=== PATIENT | female | born 1935 | race Caucasian/White ===

== ENCOUNTER 2018-11-26 09:12 | Observation (INO) | payer OTHER ==
--- NOTE | 2018-11-26 10:07 | RAD REPORT ---
EXAM DESCRIPTION: RAD - Chest Single View - 11/26/2018 9:54 am CLINICAL HISTORY: CHEST PAIN Chest pain. COMPARISON: No comparisons FINDINGS: Portable technique limits examination quality. Mild bilateral pulmonary opacities are noted suspicious for mild pulmonary edema. The heart is modera tely enlarged in size. Trace pleural fluid is seen.Aortic atherosclerosis. IMPRESSION: Mild CHF versus volume overload pattern suspected.
[2018-11-26 10:15] LABS: ALT/SGPT 16 U/L (12-78); AST/SGOT 19 U/L (15-37); Albumin 3.5 g/dL (3.4-5.0); Alkaline Phosphatase 67 U/L (45-117); BUN Blood Urea Nitrogen 19 mg/dL (7-18); Bicarbonate 26 mmol/L (21-32); Bilirubin Direct 0.1 mg/dL (0-0.2); Bilirubin Total 0.3 mg/dL (0.2-1.0); Glucose Level 89 mg/dL (74-106); Magnesium 2.4 mg/dL (1.8-2.4); NT PRO-BNP 2910 pg/mL (<450); Potassium 4.5 mmol/L (3.5-5.1); Protein, Total 7.8 g/dL (6.4-8.2); Sodium Level 143 mmol/L (136-145); Troponin (Emerg Dept Use Only) < 0.02 ng/mL (0.0-0.045)
[2018-11-26 10:16] LABS: Absolute Lymphocytes (CBC) 0.9 K/uL (0.7-4.9); Absolute Monocytes 0.5 K/uL (0.1-1.3); Absolute Neutrophil 4.8 K/uL (1.8-8.0); Basophils % 0.8 % (0-1.3); Eosinophils % 8.2 % (0-4.4); Hematocrit 33.5 % (36.0-45.0); Lymphocytes % 13.7 % (15.3-44.8); MPV 9.7 fL (7.6-11.3); Monocytes % 7.5 % (3.3-12.3); Protime INR 1.11
[2018-11-26] MEDS ORDERED: FUROSEMIDE 40 MG/4 ML VIAL ONE (10:30)
--- NOTE | 2018-11-26 10:31 | ER ---
Nurse's Notes [facility] Name: Surekha Wisdom Age: 83 yrs Sex: Female : 1935 Arrival Date: 11/26/2018 Time: 09:13 Bed 7 Private MD: Diagnosis: Acute CHF exacerbation;Chest pain;Shortness of breath Presentation: 11/26 09:14 Presenting complaint: EMS states: coming from [facility], complaints of chest pain hj that comes and goes, started 4 am, and its getting worse, 8/10; hx of Afib, aspirin 324 mg given at 8:25 am; nitro 0.4 mg x 4 last dose at 9:03 am; pain down to 5/10; BP- 138/85; HR- 70;. Transition of care: patient was received from another setting of care (long-term care facility), [facility];. Onset of symptoms was November 26, 2018 at 04:00. Risk Assessment: Do you want to hurt yourself or someone else? Patient reports no desire to harm self or others. Initial Sepsis Screen: Does the patient meet any 2 criteria? No. Patient's initial sepsis screen is negative. Does the patient have a suspected source of infection? No. Patient's initial sepsis screen is negative. Care prior to arrival: None. 09:14 Method Of Arrival: EMS: [facility] 09:14 Acuity: JEANMARIE 3 hj Triage Assessment: 09:18 General: Appears in no apparent distress. uncomfortable, Behavior is calm, cooperative, hj appropriate for age. Pain: Complains of pain in chest Pain currently is 5 out of 10 on a pain scale. EENT: No signs and/or symptoms were reported regarding the EENT system. Neuro: Level of Consciousness is awake, alert, obeys commands, Oriented to person, place, time, situation, Appropriate for age. Cardiovascular: Capillary refill < 3 seconds Patient's skin is warm and dry. Respiratory: Airway is patent Respiratory effort is even, unlabored, Respiratory pattern is regular, symmetrical. GI: No signs and/or symptoms were reported involving the gastrointestinal system. : No signs and/or symptoms were reported regarding the genitourinary system. Derm: No signs and/or symptoms reported regarding the dermatologic system. Musculoskeletal: No signs and/or symptoms reported regarding the musculoskeletal system. Historical: - Allergies: 09:17 No Known Allergies; hj - Home Meds: 09:17 gabapentin 100 mg oral cap 3 caps 3 times per day [Active]; Cozaar 100 mg Oral tab 1 hj tab once daily [Active]; amlodipine 5 mg tab 1 tab once daily [Active]; [place] 200-200-20 mg/5 mL oral susp 30 mL every 4 hours [Active]; mirtazapine 7.5 mg Oral tab 1 tabs once daily [Active]; Tylenol-Codeine #4 300-60 mg Oral tab 1 tab every 6 hours [Active]; aspirin 81 mg Oral chew 1 tab once daily [Active]; bisacodyl 5 mg Oral TbEC 1 tab [Active]; tramadol 50 mg Oral tab 2 tabs twice a day [Active]; cyanocobalamin (vitamin B-12) 100 mcg oral tab [Active]; docusate calcium 240 mg Oral cap 1 cap once daily [Active]; Restoril 15 mg Oral cap 1 cap once daily [Active]; melatonin 3 mg oral tab daily [Active]; Cymbalta 60 mg oral cpDR 1 cap once daily [Active]; Milk of Magnesia 400 mg/5 mL Oral susp 30 mL once daily [Active]; loratadine 10 mg oral tab 1 tab once daily [Active]; meloxicam 7.5 mg oral tab 1 tab once daily [Active]; fenofibrate 54 mg oral tab 1 tab once daily [Active]; Imdur 30 mg Oral Tb24 1 tab once daily [Active]; Coreg 12.5 mg Oral tab 1 tab 2 times per day [Active]; Miralax 17 gram/dose Oral powd once daily [Active]; Lipitor 20 mg Oral tab 1 tab once daily [Active]; - PMHx: 09:17 Hyperlipidemia; Hypertension; hj - PSHx: :17 Unable to obtain; hj - Immunization history:: Adult Immunizations up to date. - Social history:: Smoking status: Patient/guardian denies using tobacco, Patient/guardian denies using alcohol. - Ebola Screening: : Patient negative for fever greater than or equal to 101.5 degrees Fahrenheit, and additional compatible Ebola Virus Disease symptoms Patient denies exposure to infectious person Patient denies travel to an Ebola-affected area in the 21 days before illness onset. Screenin:19 Abuse screen: Denies threats or abuse. Denies injuries from another. Nutritional hj screening: No deficits noted. Tuberculosis screening: No symptoms or risk factors identified. Fall Risk None identified. Assessment: 09:20 Pain: Complains of pain in chest Pain does not radiate. Pain began. hj Vital Signs: 09:20 BP 150 / 110; Pulse 75; Resp 18; Pulse Ox 100% on 2 lpm NC; Weight 79.38 kg; Height 5 hj ft. 7 in. (170.18 cm); Pain 5/10; 09:51 BP 148 / 95; Pulse 70; Resp 18; Pulse Ox 100% on 2 lpm NC; Pain 2/10; hj 11:01 BP 151 / 78; Pulse 83; Resp 18; Pulse Ox 98% on 2 lpm NC; hj 09:20 Body Mass Index 27.41 (79.38 kg, 170.18 cm) hj ED Course: 09:13 Patient arrived in ED. hj 09:17 Triage completed. hj 09:18 Trevor Cueto MD is Attending Physician. ps1 09:19 Arm band placed on right wrist. hj 09:19 Patient has correct armband on for positive identification. Placed in gown. Bed in low hj position. Call light in reach. Side rails up X 1. residential monitor on. Pulse ox on. NIBP on. 09:20 Patient maintains SpO2 saturation greater than 95% on room air. hj 09:35 Tl Velazquez, RN is Primary Nurse. hj 09:35 EKG done, by electronic tech. reviewed by Trevor Cueto MD. at1 09:45 Initial lab(s) drawn, by az, sent to lab. eb 09:52 X-ray completed. Portable x-ray completed in exam room. Patient tolerated procedure jb2 well. 09:54 XRAY Chest (1 view) In Process Unspecified. EDMS 10:03 Basic Metabolic Panel Sent. eb 10:03 CBC with Diff Sent. eb 10:03 LFT's Sent. eb 10:03 Magnesium Sent. eb 10:03 NT PRO-BNP Sent. eb 10:03 PT-INR Sent. eb 10:03 Troponin (emerg Dept Use Only) Sent. eb 10:30 Bertha Zuñiga MD is Hospitalizing Provider. ps1 10:45 Urine collected: clean catch specimen, clear. eb 11:34 No provider procedures requiring assistance completed. Patient admitted, IV remains in hj place. intact. Administered Medications: 10:15 Drug: Lasix 40 mg Route: IVP; Site: right forearm; 10:37 Follow up: Response: No adverse reaction 11:24 Drug: Rocephin - (cefTRIAXone) 1 grams Route: IVPB; Infused Over: 30 mins; Site: right hj hand; 11:30 Follow up: IV Status: Completed infusion Outcome: 10:30 Decision to Hospitalize by Provider. ps1 11:35 Admitted to Tele accompanied by tech, via wheelchair, room 419, with oxygen, with chart, Report called to DARIUS Ortega 11:35 Condition: stable 11:35 Instructed on the need for admit, Demonstrated understanding of instructions. 11:46 Patient left the ED. Signatures: Dispatcher [employer] EDMS Jay Quinn Amanda, mop worker EKG Tat1 Tl Velazquez RN RN Trevor Cueto MD MD ps1 Roxana Villatoro Corrections: (The following items were deleted from the chart) 11:03 09:20 BP 150 / 110; Pulse 75bpm; Resp 18bpm; Pulse Ox 100% RA; 79.38 kg; Height 5 ft. 7 hj in.; BMI: 27.4; Pain 5/10; hj 11:03 09:51 BP 148 / 95; Pulse 70bpm; Resp 18bpm; Pulse Ox 100% RA; Pain 2/10; hj
--- NOTE | 2018-11-26 10:32 | EDPHYS ---
Physician Documentation [facility] Name: Surekha Wisdom Age: 83 yrs Sex: Female : 1935 Arrival Date: 11/26/2018 Time: 09:13 Bed 7 Private MD: ED Physician Treovr Cueto HPI: 11/26 10:01 This 83 yrs old Female presents to ER via EMS with complaints of Chest Pain. ps1 10:01 patient states that she has a long history of chest pain. States her symptoms have been ps1 going on for years. States that the pain is no different than previous but is more intense today. States that she sees Dr. Marte in [place] but has not followed up with him in a while. She said that she had a heart cath but no stents. Rates her pain as moderate. Her history is partially limited as the patient states that she is confused. . Historical: - Allergies: 09:17 No Known Allergies; hj - Home Meds: 09:17 gabapentin 100 mg oral cap 3 caps 3 times per day [Active]; Cozaar 100 mg Oral tab 1 hj tab once daily [Active]; amlodipine 5 mg tab 1 tab once daily [Active]; [place] 200-200-20 mg/5 mL oral susp 30 mL every 4 hours [Active]; mirtazapine 7.5 mg Oral tab 1 tabs once daily [Active]; Tylenol-Codeine #4 300-60 mg Oral tab 1 tab every 6 hours [Active]; aspirin 81 mg Oral chew 1 tab once daily [Active]; bisacodyl 5 mg Oral TbEC 1 tab [Active]; tramadol 50 mg Oral tab 2 tabs twice a day [Active]; cyanocobalamin (vitamin B-12) 100 mcg oral tab [Active]; docusate calcium 240 mg Oral cap 1 cap once daily [Active]; Restoril 15 mg Oral cap 1 cap once daily [Active]; melatonin 3 mg oral tab daily [Active]; Cymbalta 60 mg oral cpDR 1 cap once daily [Active]; Milk of Magnesia 400 mg/5 mL Oral susp 30 mL once daily [Active]; loratadine 10 mg oral tab 1 tab once daily [Active]; meloxicam 7.5 mg oral tab 1 tab once daily [Active]; fenofibrate 54 mg oral tab 1 tab once daily [Active]; Imdur 30 mg Oral Tb24 1 tab once daily [Active]; Coreg 12.5 mg Oral tab 1 tab 2 times per day [Active]; Miralax 17 gram/dose Oral powd once daily [Active]; Lipitor 20 mg Oral tab 1 tab once daily [Active]; - PMHx: 09:17 Hyperlipidemia; Hypertension; hj - PSHx: 09:17 Unable to obtain; hj - Immunization history:: Adult Immunizations up to date. - Social history:: Smoking status: Patient/guardian denies using tobacco, Patient/guardian denies using alcohol. - Ebola Screening: : Patient negative for fever greater than or equal to 101.5 degrees Fahrenheit, and additional compatible Ebola Virus Disease symptoms Patient denies exposure to infectious person Patient denies travel to an Ebola-affected area in the 21 days before illness onset. ROS: 10:01 Constitutional: Negative for fever, chills, and weight loss, Eyes: Negative for injury, ps1 pain, redness, and discharge, ENT: Negative for injury, pain, and discharge, Neck: Negative for injury, pain, and swelling, MS/Extremity: Negative for injury and deformity, Skin: Negative for injury, rash, and discoloration, Neuro: Negative for headache, weakness, numbness, tingling, and seizure. 10:01 Cardiovascular: Positive for chest pain. 10:01 Respiratory: Positive for dyspnea on exertion, shortness of breath. Exam: 10:01 Constitutional: This is a well developed, well nourished patient who is awake, alert, ps1 and in no acute distress. Head/Face: Normocephalic, atraumatic. Eyes: Pupils equal round and reactive to light, extra-ocular motions intact. Lids and lashes normal. Conjunctiva and sclera are non-icteric and not injected. Chest/axilla: Normal chest wall appearance and motion. Nontender with no deformity. No lesions are appreciated. Respiratory: Lungs have equal breath sounds bilaterally, clear to auscultation and percussion. No rales, rhonchi or wheezes noted. No increased work of breathing, no retractions or nasal flaring. Abdomen/GI: Soft, non-tender, with normal bowel sounds. No distension or tympany. No guarding or rebound. No evidence of tenderness throughout. 10:01 Cardiovascular: Rate: normal, Rhythm: irregularly irregular, Pulses: no pulse deficits are appreciated. Vital Signs: 09:20 BP 150 / 110; Pulse 75; Resp 18; Pulse Ox 100% on 2 lpm NC; Weight 79.38 kg; Height 5 hj ft. 7 in. (170.18 cm); Pain 5/10; 09:51 BP 148 / 95; Pulse 70; Resp 18; Pulse Ox 100% on 2 lpm NC; Pain 2/10; hj 11:01 BP 151 / 78; Pulse 83; Resp 18; Pulse Ox 98% on 2 lpm NC; hj 09:20 Body Mass Index 27.41 (79.38 kg, 170.18 cm) hj MDM: 09:18 Patient medically screened. ps1 11/26 09:44 Order name: Basic Metabolic Panel; Complete Time: 10:16 ps1 11/26 09:44 Order name: CBC with Diff; Complete Time: 10:24 ps1 11/26 09:44 Order name: LFT's; Complete Time: 10: ps1 11/26 09:44 Order name: Magnesium; Complete Time: 10:16 ps1 11/26 09:44 Order name: NT PRO-BNP; Complete Time: 10:16 ps1 11/26 09:44 Order name: PT-INR; Complete Time: 10:24 ps1 11/26 09:44 Order name: Troponin (emerg Dept Use Only); Complete Time: 10:16 ps1 11/26 09:44 Order name: XRAY Chest (1 view); Complete Time: 10:14 ps1 11/26 09:44 Order name: EKG; Complete Time: 09:45 ps1 11/26 09:44 Order name: Cardiac monitoring; Complete Time: :47 ps1 11/26 10:44 Order name: Urine Dipstick--Ancillary (enter results); Complete Time: 11:23 eb 11/26 10:44 Order name: Urine Microscopic Only; Complete Time: 11: eb 11/26 09:44 Order name: EKG - Nurse/Tech; Complete Time: :47 ps1 11/26 09:44 Order name: IV Saline Lock; Complete Time: :47 ps1 11/26 09:44 Order name: Labs collected and sent; Complete Time: :47 ps1 11/26 09:44 Order name: O2 Per Protocol; Complete Time: :47 ps1 11/26 09:44 Order name: O2 Sat Monitoring; Complete Time: ps1 11/26 09:44 Order name: Urine Dipstick-Ancillary (obtain specimen); Complete Time: 10:38 ps1 EC:01 Rate is 76 beats/min. Rhythm is irregularly irregular. QRS [place] is Normal. QRS interval ps1 is normal. QT interval is normal. No Q waves. T waves are Normal. No ST changes noted. Clinical impression: Atrial Fibrillation. Administered Medications: 10:15 Drug: Lasix 40 mg Route: IVP; Site: right forearm; 10:37 Follow up: Response: No adverse reaction 11:24 Drug: Rocephin - (cefTRIAXone) 1 grams Route: IVPB; Infused Over: 30 mins; Site: right hj hand; 11:30 Follow up: IV Status: Completed infusion Disposition: 11/26/18 10:30 Hospitalization ordered by Bertha Zuñiga for Observation. Preliminary diagnosis are Acute CHF exacerbation, Chest pain, Shortness of breath. - Bed requested for Telemetry/MedSurg (observation). - Status is Observation. hj - Condition is Stable. - Problem is an acute exacerbation. - Symptoms have improved. UTI on Admission? No Signatures: Dispatcher [employer] EDMS Aracely Bryan RN RN iw Tl Velazquez RN RN hj Trevor Cueto MD MD ps1 Corrections: (The following items were deleted from the chart) 10:55 10:30 Hospitalization Ordered by Bertha Zuñiga MD for Observation. Preliminary diagnosis iw is Acute CHF exacerbation; Chest pain; Shortness of breath. Bed requested for Telemetry/MedSurg (observation). Status is Observation. Condition is Stable. Problem is an acute exacerbation. Symptoms have improved. UTI on Admission? No. ps1 11:46 10:55 11/26/2018 10:30 Hospitalization Ordered by Bertha Zuñiga MD for Observation. hj Preliminary diagnosis is Acute CHF exacerbation; Chest pain; Shortness of breath. Bed requested for Telemetry/MedSurg (observation). Status is Observation. Condition is Stable. Problem is an acute exacerbation. Symptoms have improved. UTI on Admission? No. iw
[2018-11-26 11:03] LABS: Urine Blood NEGATIVE (NEG); Urine Glucose NEGATIVE (NEG); Urine Protein NEGATIVE (NEG)
[2018-11-26 11:04] LABS: Urine Bacteria >50 /HPF (<20); Urine Culture Reflex Order REFLEXED; Urine RBC <5 /HPF (NONE SEEN)
[2018-11-26] MEDS ORDERED: CEFTRIAXONE/SWI 1gm 1 GM/10 ML SYR ONE (11:39)
[2018-11-26] MEDS ORDERED: ACETAMINOPHEN 500 MG TAB PO PRN (12:38)
[2018-11-26] MEDS ORDERED: ONDANSETRON 4 MG/2 ML VIAL IV PRN (12:38)
[2018-11-26 15:25] VITALS: BMI 27.3
--- NOTE | 2018-11-26 15:53 | ECHO ---
HEIGHT: 5 ft 7 in WEIGHT: 175 lb 0 oz DATE OF STUDY: 11/26/[address]: Bertha Zuñiga MD 2-DIMENSIONAL: YES M.MODE: YES DOPPLER: YES COLOR FLOW: YES TDS: NO PORTABLE: NO DEFINITY: NO BUBBLE STUDY: NO DIAGNOSIS: CONGESTIVE HEART FAILURE CARDIAC HISTORY: CATHERIZATION: NO SURGERY: NO PROSTHETIC VALVE: NO PACEMAKER: NO MEASUREMENTS (cm) DIASTOLIC (NORMALS) SYSTOLIC (NORMALS) IVSd 0.9 (0.6-1.2) LA Diam 4.8 (1.9-4.0) LVEF 61% LVIDd 4.3 (3.5-5.7) LVIDs 2.9 (2.0-3.5) %FS 32% LVPWd 0.9 (0.6-1.2) Ao Diam 3.2 (2.0-3.7) 2 DIMENSIONAL ASSESSMENT: RIGHT ATRIUM: DILATED LEFT ATRIUM: DILATED RIGHT VENTRICLE: DILATED LEFT VENTRICLE: NORMAL TRICUSPID VALVE: NORMAL MITRAL VALVE: NORMAL PULMONIC VALVE: NORMAL AORTIC VALVE: NORMAL PERICARDIAL EFFUSION: TRIVIAL AORTIC ROOT: NORMAL LEFT VENTRICULAR WALL MOTION: NORMAL. DOPPLER/COLOR FLOW: MILD MITRAL AND AORTIC REGURGITATION. MILD TRICUSPID REGURGITATION. ESTIMATED RIGHT VENTRICULAR SYSTOLIC PRESSURE 47mmHg. MILD MODERATE PULMONARY HYPERTENSION. COMMENTS: NORMAL LEFT VENTRICULAR EJECTION FRACTION. DILATED LEFT ATRIUM, RIGHT ATRIUM AND RIGHT VENTRICLE. TRIVIAL PERICARDIAL EFFUSION. MILD AORTIC, MITRAL AND TRICUSPID REGURGITATION. MILD-MODERATE PULMONARY HYPERTENSION. TECHNOLOGIST: IRENA ASCENCIO
[2018-11-26] MEDS ORDERED: BISACODYL E.C. 5 MG TAB PO PRN (16:26)
[2018-11-26] MEDS ORDERED: TRAMADOL HCL 50 MG TAB PO PRN (16:26)
[2018-11-26] MEDS: FUROSEMIDE 40 MG/4 ML VIAL IV SCH (16:39)
[2018-11-26] MEDS: DULOXETINE 30 MG CAP PO SCH (20:44)
[2018-11-26] MEDS: GABAPENTIN 300 MG CAP PO SCH (20:45)
[2018-11-26] MEDS: CARVEDILOL 12.5 MG TAB PO SCH (20:46)
[2018-11-26] MEDS: DOCUSATE NA 100 MG CAP PO SCH (20:57)
[2018-11-26] MEDS ORDERED: ATORVASTATIN 20 MG TAB PO SCH (21:00)
[2018-11-26] MEDS ORDERED: MIRTAZAPINE 15 MG TAB PO SCH (21:00)
[2018-11-26] MEDS ORDERED: METOPROLOL TAR 25 MG TAB PO SCH (21:00)
[2018-11-26] MEDS ORDERED: HOME MED 1 EA UNK (Acetaminophen With Codeine [Tylenol With Codeine #4 Tablet] 1 EACH) PO SCH (21:00)
[2018-11-26] MEDS ORDERED: TEMAZEPAM 15 MG CAP PO SCH (21:00)
[2018-11-26] MEDS ORDERED: MELATONIN 3 MG TABLET PO SCH (21:00)
[2018-11-26] MEDS ORDERED: AMLODIPINE 10 MG TAB PO SCH (21:00)
[2018-11-26] MEDS ORDERED: HOME MED 1 EA UNK (Mirtazapine [Mirtazapine] 7.5 MG) PO SCH (21:00)
[2018-11-26] MEDS ORDERED: HOME MED 1 EA UNK (Duloxetine Hcl [Cymbalta] 60 MG) PO SCH (21:00)
--- NOTE | 2018-11-27 02:51 | HP ---
Date of Admission: 11/26/2018 Chief Complaint: Shortness of breath. History Of Present Illness: The patient is an 83-year-old female with past medical history of hypertension, hyperlipidemia, neuropathy, depression, who is a resident of a correction, comes in with progressive shortness of breath along with lower extremity edema. The patient does see Dr. Marte in [place] , however, has not seen him in a long time. Has had a previous heart catheterization without any stent placement. The patient denies any nausea, vomiting, fever, or chills. Her symptoms are constant, moderate, progressively worsening. The patient was then brought in from the nursing facility for further evaluation. In the ER, she was 100% on 2 L. Her blood pressure was stable. Her workup showed an elevated BNP at 2900. White count was normal. She did have an abnormal UA. The patient was then given Lasix as her chest x- ray showed some volume overload. She was then referred for admission. When seen in the ER, she was awake, alert, oriented x2, in some mild distress. Past Medical History: Hypertension, hyperlipidemia, depression, neuropathy, coronary artery disease. Surgeries: Unknown. Allergies: NO KNOWN DRUG ALLERGIES. Medications: List reviewed. Family History: Noncontributory in this 83-year-old female. Social History: The patient denies any tobacco use or alcohol use. Does use a walker for ambulation. Lives in a nursing facility. Needs assistance with her activities of daily living. Review of Systems: Limited due to the patient's medical condition, however 10-point system reviewed , negative except as per HPI. Physical Examination: Vital Signs: Blood pressure 150/110, respirations 18, pulse 75, temperature 97.8, O2 100% on 2 L. General: Awake, alert, and oriented x2, elderly female, somewhat ill- appearing. HEENT: Normocephalic, atraumatic. PERRLA. EOMI. Moist mucous membranes. Oropharynx is clear. Poor dentition. Conjunctivae anicteric. Neck: Supple. Trachea midline. CV: S1, S2. Regular rate and rhythm. Peripheral pulses present. Respiratory: Diminished breath sounds. Some crackles present. No wheezing or stridor. Gastrointestinal: Abdomen is soft, nontender, nondistended. Positive bowel sounds. Extremities: No clubbing, cyanosis. 2+ edema in bilateral lower extremities. No calf tenderness. Neuro: Cranial nerves 2 through 12 intact grossly. No focal neurological deficits. Speech is normal. Skin: No rashes. Normal skin turgor. Laboratory Data: WBC 6.8, H and H 11 and 33.5, platelets 248, neutrophils 69%. INR of 1.11. Sodium 143, potassium 4.5, chloride 111, CO2 26, BUN 19, creatinine 1.07, glucose 89, calcium 8.8, magnesium 2.4. Troponin less than 0.02. BNP 2910. UA, negative nitrite, leukocyte esterase is 1+, 5-10 wbc's, 5- 10 squamous epithelial cells, greater than 50 bacteria. Chest x-ray, personally reviewed, shows mild CHF versus volume overload pattern suspected. Echocardiogram shows EF of 61%. Dilated left atrium and right atrium. Trivial pericardial effusion. Mild aortic, mitral, and tricuspid regurgitation. Mild- to-moderate pulmonary hypertension. Assessment And Plan: An 83-year-old female with: 1. Acute diastolic heart failure. Echocardiogram reviewed. Normal ejection fraction. We will continue diuretics. We will start on TRACEE inhibitor, beta- mylene. Monitor I's and O's. Daily weights. 2. Acute cystitis without hematuria. We will start Rocephin. Follow up on urine culture. 3. Hypertension. We will resume home medications as appropriate. 4. Hyperlipidemia, mixed, continue statin. 5. Coronary artery disease, [place] artery and [place] heart without angina. 6. Neuropathy. 7. Major depressive disorder. Continue SSRI. 8. Deep vein thrombosis prophylaxis with Lovenox. Plan: Admit the patient to Med-Surg, [facility] as observation. Code Status: Full SA/MODL Voice ID: [id number] [facility]
[2018-11-27 04:14] LABS: Absolute Lymphocytes (CBC) 1.5 K/uL (0.7-4.9); Absolute Monocytes 0.9 K/uL (0.1-1.3); Absolute Neutrophil 5.7 K/uL (1.8-8.0); Basophils % 0.9 % (0-1.3); Eosinophils % 6.4 % (0-4.4); Hematocrit 35.4 % (36.0-45.0); MPV 9.7 fL (7.6-11.3); Monocytes % 10.1 % (3.3-12.3); RBC Red Blood Cell Count 4.31 M/uL (3.86-4.86)
[2018-11-27 04:29] LABS: Albumin 3.5 g/dL (3.4-5.0); Bilirubin Total 0.3 mg/dL (0.2-1.0); Potassium 3.6 mmol/L (3.5-5.1); Protein, Total 7.9 g/dL (6.4-8.2)
--- NOTE | 2018-11-27 07:04 | EKG ---
Test Date: 2018-11-26 Test Time: 09:12:58 Occupational Health Nurse Supervisor: BETZY MEASUREMENT RESULTS: Intervals: Rate: 76 PA: QRSD: 80 QT: 398 QTc: 447 [place]: P: PA: QRS: -30 T: 25 INTERPRETIVE STATEMENTS: Atrial fibrillation Left axis deviation Anteroseptal infarct, age undetermined Abnormal ECG Compared to ECG 03/05/1995 12:20:00 Left-axis deviation now present Myocardial infarct finding now present Sinus rhythm no longer present Electronically Signed On 11-27-18 07:04:11 PIPE FITTER AMMONIA by Dilshad Shaffer
[2018-11-27] MEDS ORDERED: ISOSORBIDE MONO SR 30 MG TAB PO SCH (09:00)
[2018-11-27] MEDS: GABAPENTIN 300 MG CAP PO SCH (09:00)
[2018-11-27] MEDS ORDERED: FENOFIBRATE 54 MG PO SCH (09:00)
[2018-11-27] MEDS ORDERED: ASPIRIN 81 MG CHEWABLE TABLET PO SCH (09:00)
[2018-11-27] MEDS ORDERED: POLYETHYL GLY 3350 17 GM/DOSE PO SCH (09:00)
[2018-11-27] MEDS ORDERED: LORATADINE 10 MG TAB PO SCH (09:00)
[2018-11-27] MEDS ORDERED: CEFTRIAXONE/SWI 1gm 1 GM/10 ML SYR IVP SCH (09:00)
[2018-11-27] MEDS: DOCUSATE NA 100 MG CAP PO SCH (09:00)
[2018-11-27] MEDS ORDERED: IMDUR 30 MG PO SCH (09:00)
[2018-11-27] MEDS: DULOXETINE 30 MG CAP PO SCH (09:00)
[2018-11-27] MEDS ORDERED: ENOXAPARIN 40 MG/0.4 ML SQ SCH (09:00)
[2018-11-27] MEDS: CARVEDILOL 12.5 MG TAB PO SCH (09:00)
[2018-11-27] MEDS ORDERED: LOSARTAN POTASSIUM 50 MG TABLET PO SCH (09:00)
[2018-11-27] MEDS: FUROSEMIDE 40 MG/4 ML VIAL IV SCH (09:00)
[2018-11-27] MEDS ORDERED: AMLODIPINE 5 MG TAB PO SCH (09:00)
[2018-11-27] MEDS ORDERED: LISINOPRIL 10 MG TAB PO SCH (09:00)
[2018-11-27 11:09] VITALS: O2SAT 97
[2018-11-27 12:18] VITALS: BP 145/65; TEMP 98.1
--- NOTE | 2018-11-28 01:03 | DS ---
Date of Discharge: 11/27/2018 Discharge Diagnoses: 1.Acute diastolic heart failure. 2.Acute cystitis without hematuria. 3.Essential hypertension. 4.Mixed hyperlipidemia. 5.Coronary artery disease, [place] artery and [place] heart, without angina. 6.Neuropathy. 7.Major depressive disorder. 8.Pulmonary hypertension. Hospital Course: The patient is an 83-year-old female who is a resident of [facility], comes in nv th progressive shortness of breath and edema. The patient was found to have elevated BNP and chest x -ray showing volume overload. She was started on diuretics and CHF guidelines. Echocardiogram was d one, which showed an EF of 61%. The patient responded well to diuretics. Her fluid balance was nega tive. Her edema improved as well as her shortness of breath. She did not require supplemental oxyge n upon discharge. The patient also had abnormal UA, was found to have UTI with urine culture growing gram-negative rods . She does not have any history of resistant bacteria and does not appear to be septic. Her white c ount is normal. Therefore, we will discharge on oral antibiotics and follow up on final culture resu lts. Overall, the patient did well and was stable for discharge. Medications: As per medication reconciliation list. Lasix has been added. The patient will finish off course of cefuroxime. Followup: Follow up with primary care physician in 2 to 3 days. Follow up with driller operator, Dr. Wilks, in 2 weeks. Return to ER for worsening condition. Diet: Low sodium, 1500 mL fluid restriction. Activity: As tolerated. Ambulate with assist. Physical Examination: General: Awake, alert, oriented x3. Elderly female. CV: S1, S2. No murmurs. Respiratory: Moving air well bilaterally. Abdomen: Soft, nontender, nondistended. Positive bowel sounds. Extremities: No clubbing or cyanosis. Pedal edema is present. Neurologic: Nonfocal. SA/MODL Voice ID: [id number] Report ID: [id number]
== END 2018-11-27 13:36 ==
LOC: ER 09:12 → ERHOLD 10:44 → 4TH 11:27
PROVIDERS: ADMIT Family Medicine; ATTEND Family Medicine
DX: I11.0 Hypertensive heart disease with heart failure (principal); I50.31 Acute diastolic (congestive) heart failure; N30.00 Acute cystitis without hematuria; E78.2 Mixed hyperlipidemia; I25.10 Atherosclerotic heart disease of native coronary artery without angina pectoris; G62.9 Polyneuropathy, unspecified; F32.9 Major depressive disorder, single episode, unspecified; I27.20 Pulmonary hypertension, unspecified
CPT/HCPCS: 36415; 71045; 80048; 80053; 80076; 83735; 83880; 84484; 85025 ×2; 85610; 87077 ×2; 87086; 87088; 87186 ×2; 93005; 93306; 94760 ×3; 96374; 96375; 99285; G0378 ×2; J0696 ×2; J1650; J1940 ×3; 81003; 81015

== ENCOUNTER 2019-12-29 16:10 | Inpatient (IN) | payer OTHER ==
[2019-12-29 17:00] LABS: Absolute Lymphocytes (CBC) 0.8 K/uL (0.7-4.9); Basophils % 0.8 % (0-1.3); Hematocrit 22.9 % (36.0-45.0); Lymphocytes % 11.4 % (15.3-44.8); MPV 9.5 fL (7.6-11.3); RBC Red Blood Cell Count 3.39 M/uL (3.86-4.86)
[2019-12-29 17:02] LABS: RBC Red Blood Cell Count 3.36 M/uL (3.86-4.86)
[2019-12-29 17:04] LABS: Protime INR 1.55
[2019-12-29 17:16] LABS: Albumin 3.1 g/dL (3.4-5.0); Bilirubin Direct 0.2 mg/dL (0-0.2); Bilirubin Total 0.4 mg/dL (0.2-1.0); Potassium 4.3 mmol/L (3.5-5.1); Protein, Total 7.5 g/dL (6.4-8.2)
--- NOTE | 2019-12-29 17:38 | ER ---
Nurse's Notes [facility] Name: Surekha Wisdom Age: 84 yrs Sex: Female : 1935 Arrival Date: 12/29/2019 Time: 16:12 Bed 6 Private MD: Diagnosis: Anemia, unspecified;Melena;Upper GI bleed Presentation: 12/28 16:13 Chief complaint: EMS states: Sent from care home due to abnormal labs: hgb 6.5; pt jl7 reports dark stools, denies pain, denies N/V/D. Coronavirus screen: Patient denies fever greater than 100.4F, cough, shortness of breath, or difficulty breathing. Proceed with normal triage process. Ebola Screen: No symptoms or risks identified at this time. Initial Sepsis Screen: Does the patient meet any 2 criteria? No. Patient's initial sepsis screen is negative. Does the patient have a suspected source of infection? No. Patient's initial sepsis screen is negative. Risk Assessment: Do you want to hurt yourself or someone else? Patient reports no desire to harm self or others. Onset of symptoms is unknown. 16:13 Method Of Arrival: EMS: KRIS jl 16:13 Acuity: JEANMARIE 3 jl7 Triage Assessment: 16:15 General: Appears in no apparent distress. uncomfortable, Behavior is calm, cooperative, jl7 appropriate for age. Pain: Denies pain. EENT: No signs and/or symptoms were reported regarding the EENT system. Oral mucosa is dry. Neuro: Level of Consciousness is awake, alert, obeys commands, Oriented to person, place, time, situation. Cardiovascular: Patient's skin is warm and dry. Respiratory: Airway is patent Respiratory effort is even, unlabored, Respiratory pattern is regular, symmetrical. GI: Patient currently denies abdominal pain, diarrhea, nausea, vomiting. : No signs and/or symptoms were reported regarding the genitourinary system. Derm: Skin is dry, Skin is pale, Skin temperature is cool. Historical: - Allergies: 16:32 No Known Allergies; jl7 - Home Meds: 16:32 Cozaar 100 mg Oral tab 1 tab once daily [Active]; Lasix 20 mg Oral tab [Active]; jl7 gabapentin 400 mg oral cap 1 cap 3 times per day [Active]; bisacodyl 5 mg Oral TbEC 1 tab [Active]; Tylenol-Codeine #4 300-60 mg Oral tab 1 tab every 6 hours [Active]; Restoril 15 mg Oral cap 1 cap once daily [Active]; Xarelto 15 mg oral tab [Active]; amlodipine 5 mg tab 1 tab once daily [Active]; potassium chloride 10 mEq Oral cpER 1 cap once daily [Active]; [place] 200-200-20 mg/5 mL Oral susp 30 mL every 4 hours [Active]; mirtazapine 7.5 mg Oral tab 1 tabs once daily [Active]; aspirin 81 mg Oral chew 1 tab once daily [Active]; melatonin 3 mg Oral tab daily [Active]; Cymbalta 60 mg Oral cpDR 1 cap once daily [Active]; Milk of Magnesia 400 mg/5 mL Oral susp 30 mL once daily [Active]; loratadine 10 mg Oral tab 1 tab once daily [Active]; meloxicam 7.5 mg Oral tab 1 tab once daily [Active]; fenofibrate 54 mg Oral tab 1 tab once daily [Active]; Imdur 30 mg Oral Tb24 1 tab once daily [Active]; Coreg 12.5 mg Oral tab 1 tab 2 times per day [Active]; Miralax 17 gram/dose Oral powd once daily [Active]; Lipitor 20 mg Oral tab 1 tab once daily [Active]; - PMHx: 16:32 Hyperlipidemia; Hypertension; CAD; neuropathy; Depression; severe with psychotic jl7 symptoms; Bipolar disorder; Anxiety; CHF; - PSHx: 16:32 Unable to obtain; jl7 - Immunization history:: Adult Immunizations up to date. - Social history:: Smoking status: Patient denies any tobacco usage or history of. - Family history:: not pertinent. - Hospitalizations: : No recent hospitalization is reported. Screenin:15 Abuse screen: Denies threats or abuse. Denies injuries from another. Nutritional jl7 screening: No deficits noted. Tuberculosis screening: No symptoms or risk factors identified. Fall Risk IV access (20 points). Total Lopez Fall Scale indicates No Risk (0-24 pts). Assessment: 16:15 General: See triage assessment. jl7 17:15 Reassessment: Patient appears in no apparent distress at this time. No changes from jl7 previously documented assessment. Patient and/or family updated on plan of care and expected duration. Pain level reassessed. Patient is alert, oriented x 3, equal unlabored respirations, skin warm/dry/pink. 18:15 Reassessment: Patient appears in no apparent distress at this time. Patient and/or jl7 family updated on plan of care and expected duration. Pain level reassessed. Patient is alert, oriented x 3, equal unlabored respirations, skin warm/dry/pink. 19:39 Reassessment: Report called to Camelia MCCOY. ea 20:27 Reassessment: Patient and/or family updated on plan of care and expected duration. Pain ea level reassessed. Patient is alert, oriented x 3, equal unlabored respirations, skin warm/dry/pink. Pt admitted to second floor. Pt left ED via stretcher per tech. Pt tolerating well. Vital Signs: 16:13 BP 140 / 50; Pulse 79; Resp 19 S; Temp 97.8(O); Pulse Ox 95% on R/A; Pain 0/10; jl7 17:00 BP 124 / 53; Pulse 69; Resp 17 S; Pulse Ox 95% on R/A; jl7 17:27 BP 136 / 50; Pulse 69; Resp 16 S; Pulse Ox 95% on R/A; jl7 18:00 BP 118 / 49; Pulse 60; Resp 17 S; Pulse Ox 95% on R/A; jl7 18:42 BP 135 / 63; Pulse 70; Resp 17 S; Pulse Ox 95% on R/A; jl7 19:11 BP 116 / 93; Pulse 75; Resp 16 S; Pulse Ox 96% on R/A; jd3 ED Course: 16:12 Patient arrived in ED. rn 16:12 Chi Castro MD is Attending Physician. rn 16:13 Adrianne Quintana RN is Primary Nurse. jl7 16:15 Triage completed. jl7 16:15 Patient has correct armband on for positive identification. Placed in gown. Bed in low jl7 position. Call light in reach. Side rails up X2. telemetry monitor on. Pulse ox on. NIBP on. Warm blanket given. 16:32 Arm band placed on right wrist. 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 jl7 16:44 Maintain EMS IV. Dressing intact. Good blood return noted. Site clean \T\ dry. Gauge \T\ jl 7 site: 18 left AC. 17:38 Kell Siddiqui MD is Hospitalizing Provider. rn 17:47 Iron Level Sent. jl7 18:15 Inserted saline lock: 20 gauge in right hand, using aseptic technique. jl7 19:40 Patient admitted, IV remains in place. ea Administered Medications: 18:00 Drug: ProTONIX 40 mg Route: IVP; Site: left antecubital; jl7 18:40 Follow up: Response: No adverse reaction jl7 18:15 Drug: ProTONIX 8 mg/hr Route: IV; Rate: 25 ml/hr; Site: right hand; jl7 20:30 Follow up: IV Status: Infusion continued upon admission ea Outcome: 17:38 Decision to Hospitalize by Provider. rn 19:39 Admitted to Med/surg accompanied by tech, via stretcher, with chart, Report called to jaden Denise RN 19:39 Condition: stable 19:39 Instructed on the need for admit, Demonstrated understanding of instructions. 20:29 Patient left the ED. ea Signatures: Chi Castro MD MD rn Leal, Jahala RN RN jl7 Ximena Will RN Aiden Fulton ea RN RN jd3
--- NOTE | 2019-12-29 17:38 | EDPHYS ---
Physician Documentation [facility] Name: Surekha Wisdom Age: 84 yrs Sex: Female : 1935 Arrival Date: 12/29/2019 Time: 16:12 Bed 6 Private MD: ED Physician Chi Castro HPI: 12/28 16:31 This 84 yrs old Female presents to ER via EMS with complaints of low rn hemoglobin. 16:31 Per EMS report, sent from detention for anemia, apparently does not have hx of rn anemia, reports intermittent dark stool recently, no vomiting/fever/chest pain/abd pain. . Onset: The symptoms/episode began/occurred at an unknown time. Severity of symptoms: At their worst the symptoms were moderate in the emergency department the symptoms are unchanged. It is unknown whether or not the patient has had similar symptoms in the past. Sent with bloodwork, shows hemoglobin 6.5. Historical: - Allergies: 16:32 No Known Allergies; jl7 - Home Meds: 16:32 Cozaar 100 mg Oral tab 1 tab once daily [Active]; Lasix 20 mg Oral tab [Active]; jl7 gabapentin 400 mg oral cap 1 cap 3 times per day [Active]; bisacodyl 5 mg Oral TbEC 1 tab [Active]; Tylenol-Codeine #4 300-60 mg Oral tab 1 tab every 6 hours [Active]; Restoril 15 mg Oral cap 1 cap once daily [Active]; Xarelto 15 mg oral tab [Active]; amlodipine 5 mg tab 1 tab once daily [Active]; potassium chloride 10 mEq Oral cpER 1 cap once daily [Active]; [place] 200-200-20 mg/5 mL Oral susp 30 mL every 4 hours [Active]; mirtazapine 7.5 mg Oral tab 1 tabs once daily [Active]; aspirin 81 mg Oral chew 1 tab once daily [Active]; melatonin 3 mg Oral tab daily [Active]; Cymbalta 60 mg Oral cpDR 1 cap once daily [Active]; Milk of Magnesia 400 mg/5 mL Oral susp 30 mL once daily [Active]; loratadine 10 mg Oral tab 1 tab once daily [Active]; meloxicam 7.5 mg Oral tab 1 tab once daily [Active]; fenofibrate 54 mg Oral tab 1 tab once daily [Active]; Imdur 30 mg Oral Tb24 1 tab once daily [Active]; Coreg 12.5 mg Oral tab 1 tab 2 times per day [Active]; Miralax 17 gram/dose Oral powd once daily [Active]; Lipitor 20 mg Oral tab 1 tab once daily [Active]; - PMHx: 16:32 Hyperlipidemia; Hypertension; CAD; neuropathy; Depression; severe with psychotic jl7 symptoms; Bipolar disorder; Anxiety; CHF; - PSHx: 16:32 Unable to obtain; jl7 - Immunization history:: Adult Immunizations up to date. - Social history:: Smoking status: Patient denies any tobacco usage or history of. - Family history:: not pertinent. - Hospitalizations: : No recent hospitalization is reported. ROS: 16:31 Constitutional: Negative for fever, chills, and weight loss, Eyes: Negative for injury, rn pain, redness, and discharge, Neck: Negative for injury, pain, and swelling, Cardiovascular: Negative for chest pain, palpitations, and edema, Respiratory: Negative for cough, wheezing, and pleuritic chest pain, Abdomen/GI: Negative for abdominal pain, nausea, vomiting, diarrhea, and constipation, MS/Extremity: Negative for injury and deformity, Neuro: Negative for headache, weakness, numbness, tingling, and seizure. Exam: 16:31 Constitutional: This is a well developed, well nourished patient who is awake, alert, rn and in no acute distress. Head/Face: Normocephalic, atraumatic. ENT: MMM Cardiovascular: Irregular rhythm, regular rate Respiratory: Mild tachypnea with diminished breath sounds at bases Abdomen/GI: soft, non-tender, small amount of stool obtained on rectal exam, trace-positive MS/ Extremity: Pulses equal, no cyanosis. Neuro: Awake and alert, GCS 15 17:53 ECG was reviewed by the Attending Physician. rn Vital Signs: 16:13 BP 140 / 50; Pulse 79; Resp 19 S; Temp 97.8(O); Pulse Ox 95% on R/A; Pain 0/10; jl7 17:00 BP 124 / 53; Pulse 69; Resp 17 S; Pulse Ox 95% on R/A; jl7 17:27 BP 136 / 50; Pulse 69; Resp 16 S; Pulse Ox 95% on R/A; jl7 18:00 BP 118 / 49; Pulse 60; Resp 17 S; Pulse Ox 95% on R/A; jl7 18:42 BP 135 / 63; Pulse 70; Resp 17 S; Pulse Ox 95% on R/A; jl7 19:11 BP 116 / 93; Pulse 75; Resp 16 S; Pulse Ox 96% on R/A; jd3 MDM: 16:12 Patient medically screened. rn 17:35 Differential Diagnosis anemia, GI bleed. Data reviewed: vital signs, nurses notes, blender laborer test result(s), and as a result, I will admit patient. 17:36 Counseling: I had a detailed discussion with the patient and/or guardian regarding: the rn historical points, exam findings, and any diagnostic results supporting the discharge/admit diagnosis, lab results, radiology results, the need for further work-up and treatment in the hospital. Admission orders: after a detailed discussion of the patient's condition and case, the admit orders are written by me. ED course: Pt with hemoglobin of 6.7, trace + blood in stool, hemodynamically stable, on xarelto and aspirin, will hold, admitted to Dr. Siddiqui for further w/u, GI consult and possible blood transfusion. . 12/28 16:13 Order name: Basic Metabolic Panel; Complete Time: 17:19 rn 12/28 16:13 Order name: CBC with Diff rn 12/28 16:13 Order name: Creatinine for Radiology; Complete Time: 17: rn 12/28 16:13 Order name: Hepatic Function; Complete Time: 17:19 rn 12/28 16:13 Order name: Lipase; Complete Time: 17: rn 12/28 16:13 Order name: Type And Screen rn 12/28 16:13 Order name: PT-INR; Complete Time: 17:19 rn 12/28 16:13 Order name: Ptt, Activated; Complete Time: 17:19 rn 12/28 16:30 Order name: TRANSFERRIN SAT/IRON BINDING; Complete Time: 17:52 rn 12/28 16:30 Order name: Retic Count; Complete Time: 17:14 rn 12/28 16:30 Order name: B12; Complete Time: 17:52 rn 12/28 16:30 Order name: Ferritin; Complete Time: 17:52 rn 12/28 16:30 Order name: Iron Level rn 12/28 16:30 Order name: Folic Acid,Serum (folate); Complete Time: 17:52 rn 12/28 16:13 Order name: IV Saline Lock; Complete Time: 16:42 rn 12/28 16:13 Order name: Labs collected and sent; Complete Time: 16:42 rn 12/28 17:36 Order name: EKG; Complete Time: 17:36 rn 12/28 17:36 Order name: XRAY Chest (1 view) 12/28 17:50 Order name: ABO/RH no charge; Complete Time: 17:52 EDOH 12/28 17:56 Order name: CONS Pharmacy Consult [facility] 12/28 17:56 Order name: CBC with Automated Diff [facility] 12/28 17:56 Order name: CBC with Automated Diff [facility] 12/28 17:56 Order name: Comprehensive Metabolic Panel [facility] 12/28 17:56 Order name: Comprehensive Metabolic Panel [facility] 12/28 17:56 Order name: Lipid Profile [facility] 12/28 17:56 Order name: Lipid Profile [facility] 12/28 18:03 Order name: CBC Smear Scan; Complete Time: 18:12 [facility] 12/28 19:01 Order name: RAD [facility] 12/28 17:36 Order name: EKG - Nurse/Tech; Complete Time: 17:44 rn 12/28 17:53 Order name: NPO; Complete Time: 17:54 rn EC:53 Rate is 71 beats/min. Rhythm is irregularly irregular. Right axis deviation noted. QRS rn is positive in lead aVF and negative in lead I. QRS interval is normal. QT interval is prolonged. No Q waves. T waves are Inverted in leads V2, V3, V4. No ST changes noted. Clinical impression: Atrial Fibrillation. Interpreted by me. Reviewed by me. Administered Medications: 18:00 Drug: ProTONIX 40 mg Route: IVP; Site: left antecubital; jl7 18:40 Follow up: Response: No adverse reaction 7 18:15 Drug: ProTONIX 8 mg/hr Route: IV; Rate: 25 ml/hr; Site: right hand; jl7 20:30 Follow up: IV Status: Infusion continued upon admission ea Disposition: 12/29/19 17:38 Hospitalization ordered by Kell Siddiqui for Inpatient Admission. Preliminary diagnosis are Anemia, unspecified, Melena, Upper GI bleed. - Bed requested for Telemetry/MedSurg (Inpatient). - Status is Inpatient Admission. ea - Condition is Stable. - Problem is new. - Symptoms are unchanged. Signatures: Dispatcher [employer] EDMS Carisa Willett Chi Manzano MD MD rn Leal, Adrianne RN RN jl7 Ximena Will RN RN ea Corrections: (The following items were deleted from the chart) 18:46 17:38 Hospitalization Ordered by Kell Siddiqui MD for Inpatient Admission. Preliminary bd diagnosis is Anemia, unspecified; Melena; Upper GI bleed. Bed requested for Telemetry/MedSurg (Inpatient). Status is Inpatient Admission. Condition is Stable. Problem is new. Symptoms are unchanged. rn 20:29 18:46 12/29/2019 17:38 Hospitalization Ordered by Kell Siddiqui MD for Inpatient ea Admission. Preliminary diagnosis is Anemia, unspecified; Melena; Upper GI bleed. Bed requested for Telemetry/MedSurg (Inpatient). Status is Inpatient Admission. Condition is Stable. Problem is new. Symptoms are unchanged. bd
[2019-12-29 17:41] LABS: Ferritin 11.2 ng/mL (8-388); Folic Acid, (Folate) 17.2 ng/mL (3.1-17.5)
--- NOTE | 2019-12-29 17:53 | P.HP ---
Certification for Inpatient Patient admitted to: Observation Practitioner: I am a practitioner with admitting privileges, knowledge of patient current condition, hospital course, and medical plan of care. Services: Services provided to patient in accordance with Admission requirements found in Title 42 Section 412.3 of the Code of Federal Regulations Patient History Date of Service: 12/29/19 Reason for admission: Abnormal lab History of Present Illness: Ms. Wisdom is 84-year-old female with a history of chronic anemia who was presented for admission from [facility] given significant anemia on blood work. Patient reports intermittent dark stool going on for weeks. She denies any abdominal pain. She has had a history of lightheadedness for about 1 year. Labs from [facility] showed hemoglobin of 6.5. Patient denies any nausea or hematemesis. Home medication list upon discharge, on previous admission, showed meloxicam. It is unclear if patient is still on NSAIDs still. Awaiting med list for confirmation. Patient is unable to provide further information on medication use. She is a very poor historian and unable to report weight loss. She reports a right shoulder pain ongoing for years. She denies any recent fall. She reports intermittent shortness of breath with exertion. She denies orthopnea or lower extremity edema. Allergies No Known Allergies Allergy (Verified 11/26/18 15:26) Home Medications: Acetaminophen with Codeine [Tylenol with Codeine #4 Tablet] 1 each PO TID Amlodipine Besylate 10 mg PO BEDTIME 11/26/18 Amlodipine Besylate [Norvasc] 5 mg PO DAILY 11/26/18 Aspirin Chewable [Aspirin Chewable*] 81 mg PO DAILY 11/26/18 Atorvastatin Calcium [Lipitor*] 20 mg PO BEDTIME 11/26/18 Cyanocobalamin [Vitamin B-12*] 1,000 mcg PO DAILY 11/26/18 Docusate [Colace Cap*] 100 mg PO BID 11/26/18 Duloxetine HCl [Cymbalta] 60 mg PO BID 11/26/18 Fenofibrate 54 mg PO DAILY 11/26/18 Gabapentin 300 mg PO TID 11/26/18 Imdur Extended Release 30 mg PO DAILY 11/26/18 Loratadine [Claritin*] 10 mg PO DAILY 11/26/18 Losartan Potassium [Cozaar*] 100 mg PO DAILY 11/26/18 Melatonin [Melatonin*] 6 mg PO BEDTIME 11/26/18 Meloxicam 7.5 mg PO DAILY 11/26/18 Mirtazapine 7.5 mg PO BEDTIME 11/26/18 Polyethylene Glycol 3350 [Miralax] 17 gm PO DAILY 11/26/18 Temazepam [Restoril*] 15 mg PO BEDTIME 11/26/18 Tramadol HCl [Ultram] 100 mg PO Q12H PRN 11/26/18 bisacodyL [Dulcolax*] 10 mg PO DAILYPRN PRN 11/26/18 carvediloL [Coreg*] 12.5 mg PO BID 11/26/18 Cefuroxime Axetil [Cefuroxime] 500 mg PO BID #10 tab 11/27/18 Furosemide [Lasix] 20 mg PO DAILY #30 tablet 11/27/18 Potassium Chloride 10 meq PO DAILY #30 tablet.er 11/27/18 - Past Medical/Surgical History Diabetic: No -: HTN -: ARTHRITIS -: DEPRESSION -: INSOMNIA -: HLD -: PERIPHERAL NEUROPATHY -: X4 - Social History Smoking Status: Never smoker Alcohol use: No CD- Drugs: No Caffeine use: No Review of Systems Unremarkable General: Weakness Eyes: As per HPI ENT: As per HPI Respiratory: As per HPI Gastrointestinal: Nausea, Melena, As per HPI Musculoskeletal: Shoulder Pain, As per HPI Neurological: As per HPI Lymphatics: Unremarkable Physical Examination - Vital Signs Temperature: 97.9 F Blood Pressure: 140/50 Pulse: 79 Respirations: 14 Pulse Ox (%): 96 - Physical Exam General: Alert, In no apparent distress HEENT: Atraumatic, PERRLA, Mucous membr. moist/pink, EOMI, Sclerae nonicteric Neck: Supple, 2+ carotid pulse no bruit, No LAD, Without JVD or thyroid abnormality Respiratory: Clear to auscultation bilaterally, Normal air movement Cardiovascular: Regular rate/rhythm, Normal S1 S2 Gastrointestinal: Normal bowel sounds, No tenderness Musculoskeletal: Other (decreased ROM on R shoulder) Integumentary: No rashes Neurological: Normal affect Lymphatics: No axilla or inguinal lymphadenopathy - Studies Laboratory Data (last 24 hrs) 12/29/19 16:40: PT 18.1 H, INR 1.55, APTT 36.8 12/29/19 16:40: Creatinine 1.19 12/29/19 16:40: WBC 6.8 D, Hgb 6.7 L*, Hct 22.9 L, Plt Count 229 12/29/19 16:40: Sodium 140, Potassium 4.3, BUN 25 H, Creatinine 1.22, Glucose 117 H, Total Bilirubin 0.4, AST 15, ALT 14, Alkaline Phosphatase 43 L, Lipase 129 Assessment and Plan Discharge Plan: [facility]iary Plan to discharge in: 24 Hours - Advance Directives Does patient have a Living Will: No Does patient have a Durable POA for Healthcare: No - Code Status/Comfort Care Code Status Assessed: Yes (DW patient who is not sure. She will speak with her family for [employer]) Physician Review Additional Text: Ms. Wisdom is 84 y/o female pw anemia. # Anemia due to UGI- Microcytic. PETTY. FOBT positive by ER. Tarry dark stools at PR suggestive of UGI. -Hemodynamically stable, suspect slow bleed. -1 unit prbc transfused, monitor H&H -PPI drip; maintain npo -CT abdomen ordered. -consult GI for further evaluation. #H/o hypertension- Resume antihypertensive once loaded to MAR - for now IV hydralazine prn. #Diastolic heart failure- mild decompensation. Appears to be SOB. - chest xray with mild pulm congestion - No significant edema - Initiate on diuretics cautiously. Monitor urine output. - repeat Echo #R shoulder pain-Chronic. On meloxicam, awaiting home med list to verify if still on meds - hold NSAIDs - Xray of R shoulder. # Hyperlipidemia, mixed- will continue statin. #Coronary artery disease, [place] artery and [place] heart without angina. # Neuropathy. #Major depressive disorder-Continue SSRI. DVT ppx- SCD Patient is full code pending her discussing with her family.
[2019-12-29 18:02] LABS: Blood Morphology Comment NOTED (NOT SEEN); Hypochromasia 2+; Platelet Estimate ADEQ; Urine White Blood Cell Casts OK
[2019-12-29] MEDS ORDERED: PANTOPRAZOLE 40 MG INJ ONE (18:03)
--- NOTE | 2019-12-29 18:52 | RAD REPORT ---
EXAM DESCRIPTION: Raul[place] Single View12/29/2019 6:28 pm CLINICAL HISTORY: Shortness of breath COMPARISON: 2019 FINDINGS: Mild bilateral pulmonary opacities The heart is mildly to moderately enlarged IMPRESSION: Mild bilateral pulmonary opacities may indicate mild interstitial pulmonary edema
--- NOTE | 2019-12-29 20:27 | RAD REPORT ---
EXAM DESCRIPTION: RAD - Shoulder Right 2 View - 12/29/2019 8:17 pm CLINICAL HISTORY: Right shoulder pain FINDINGS: No fracture or dislocation is seen. Moderate osteoarthritis involves the glenohumeral joint. Bones are osteoporotic. Mild to moderate AC joint space narrowing
--- NOTE | 2019-12-29 20:46 | RAD REPORT ---
EXAM DESCRIPTION: CT - Abdomen Pelvis Wo Contrast - 12/29/2019 8:23 pm CLINICAL HISTORY: Abdominal pain /anemia COMPARISON: None TECHNIQUE: Computed axial tomography of the abdomen and pelvis was obtained. IV and oral contrast we re not requested. All CT scans are performed using dose optimization technique as appropriate and may include automated exposure control or mA/KV adjustment according to patient size. FINDINGS: The evaluation of solid organs, vessels and bowel is limited secondary to the lack of con trast administration. Small right pleural effusion The liver, spleen, pancreas, adrenals and kidneys appear grossly normal. A small to moderate right inguinal hernia contains fat There is no evidence of diverticulitis. Marked compression involves the T12 vertebral body Right buttock soft tissue ulceration. Atherosclerosis involves the arteries IMPRESSION: Marked compression involves the T12 vertebral body of indeterminate age. If clinically indicated further evaluation with MRI could be obtained Small right pleural effusion
[2019-12-29] MEDS: DULOXETINE 30 MG CAP PO SCH (21:44)
[2019-12-29] MEDS: MIRTAZAPINE 15 MG TAB PO SCH (21:44)
[2019-12-29] MEDS: ATORVASTATIN 20 MG TAB PO SCH (21:44)
[2019-12-29] MEDS: PANTOPRAZOLE INJ 80 MG in NA CHLORIDE 0.9% 250 ML IV SCH (21:50)
[2019-12-29 22:16] VITALS: BMI 25.9
[2019-12-29] MEDS: MELATONIN 3 MG TABLET PO SCH (22:54)
[2019-12-30] MEDS ORDERED: NA CHLORIDE 0.9% 250 ML ONE (00:08)
[2019-12-30 05:59] LABS: Absolute Lymphocytes (CBC) 0.8 K/uL (0.7-4.9); Basophils % 0.7 % (0-1.3); Hematocrit 25.8 % (36.0-45.0); MPV 9.2 fL (7.6-11.3); RBC Red Blood Cell Count 3.72 M/uL (3.86-4.86)
[2019-12-30] MEDS: PANTOPRAZOLE INJ 80 MG in NA CHLORIDE 0.9% 250 ML IV SCH ×2 (06:09→17:03)
[2019-12-30 06:14] LABS: Albumin 3.1 g/dL (3.4-5.0); Bilirubin Total 0.8 mg/dL (0.2-1.0); Potassium 4.1 mmol/L (3.5-5.1); Protein, Total 7.4 g/dL (6.4-8.2)
--- NOTE | 2019-12-30 10:58 | EKG ---
Test Date: 2019-12-29 Test Time: 17:52:07 Party Plan Selling Distributor: JENNA MEASUREMENT RESULTS: Intervals: Rate: 71 ID: [id number] QT: 450 QTc: 489 [place]: P: ID: [id number] T: -28 INTERPRETIVE STATEMENTS: Atrial fibrillation Rightward axis Nonspecific T wave abnormality, probably digitalis effect Prolonged QT Abnormal ECG Compared to ECG 11/26/2018 09:12:58 Right-axis deviation now present T-wave abnormality now present Prolonged QT interval now present Left-axis deviation no longer present Myocardial infarct finding no longer present Electronically Signed On 12-30-19 10:56:14 CDT by Good Peralta
--- NOTE | 2019-12-30 11:57 | P.PN ---
Subjective Date of Service: 12/30/19 Chief Complaint: Abnormal lab Subjective: No new changes Review of Systems is unable to be obtained Physical Examination - Vital Signs Temperature: 97.9 F Blood Pressure: 164/79 Pulse: 82 Respirations: 20 Pulse Ox (%): 92 - Physical Exam General: Alert, In no apparent distress HEENT: Atraumatic, PERRLA, EOMI Neck: Supple, JVD distended Respiratory: Diminished, Crackles/rales (at bases bilaterally) Cardiovascular: Regular rate/rhythm, Normal S1 S2 Gastrointestinal: Normal bowel sounds, No tenderness Musculoskeletal: No tenderness Integumentary: No rashes Neurological: Normal speech, Normal tone, Normal affect Lymphatics: No axilla or inguinal lymphadenopathy - Studies Laboratory Data (last 24 hrs) 12/30/19 05:36: Sodium 142, Potassium 4.1, BUN 21 H, Creatinine 1.13, Glucose 86 , Total Bilirubin 0.8, AST 14 L, ALT 10 L, Alkaline Phosphatase 50, Triglycerides 83, Cholesterol 119, HDL Cholesterol 45, Cholesterol/HDL Ratio 2.64 12/30/19 05:36: WBC 6.2, Hgb 7.8 L*, Hct 25.8 L, Plt Count 201 12/29/19 22:50: Hgb 6.2 L* 12/29/19 16:40: PT 18.1 H, INR 1.55, APTT 36.8 12/29/19 16:40: Creatinine 1.19 12/29/19 16:40: WBC 6.8 D, Hgb 6.7 L*, Hct 22.9 L, Plt Count 229 12/29/19 16:40: Sodium 140, Potassium 4.3, BUN 25 H, Creatinine 1.22, Glucose 117 H, Total Bilirubin 0.4, AST 15, ALT 14, Alkaline Phosphatase 43 L, Lipase 129 Assessment & Plan Physician Review Additional Text: Ms. Wisdom is 84 y/o female pw anemia. # Anemia due to UGI- Microcytic. PETTY. FOBT positive by ER. Tarry dark stools at [place] suggestive of UGI. -Hemodynamically stable, suspect slow bleed. -s/p 1 unit prbc transfused, monitor H&H -PPI drip; maintain npo pending GI evaluation -CT abdomen completed. -was on xarelto and meloxicam; now hold. Unclear why she is xarelto, will contact [place] for diagnosis. #H/o hypertension- continue antihypertensive. - for now IV hydralazine prn. #Diastolic heart failure- mild decompensation. more stable todau. - chest xray with mild pulm congestion - No significant edema - Initiated on diuretics cautiously. Monitor urine output. - repeat Echo pending #R shoulder pain-Chronic. On meloxicam; hold NSAIDs - Xray of R shoulder with osteoarthritis. # Hyperlipidemia, mixed- will continue statin. #Coronary artery disease, [place] artery and [place] heart without angina. # Neuropathy. #Major depressive disorder-Continue SSRI. DVT ppx- SCD Patient is full code pending her discussing with her family.
[2019-12-30 12:20] LABS: Hematocrit 26.7 % (36.0-45.0)
[2019-12-30] MEDS: CODEINE 30MG/APAP 300MG TAB PO PRN (13:28)
[2019-12-30] MEDS: DULOXETINE 30 MG CAP PO SCH ×2 (13:29→21:41)
[2019-12-30] MEDS ORDERED: TEMAZEPAM 7.5 MG PO SCH (14:00)
--- NOTE | 2019-12-30 14:05 | RAD REPORT ---
EXAM DESCRIPTION: CT - Spine Lumbar Wo Con - 12/30/2019 1:46 pm CLINICAL HISTORY: Radiculopathy. Compression fracture COMPARISON: No comparisons TECHNIQUE: Axial noncontrast CT imaging of the lumbar spine was performed with coronal and sagittal re-formatted images. All CT scans are performed using dose optimization technique as appropriate and may include automated exposure control or mA/KV adjustment according to patient size. FINDINGS: The significant compression fracture affects the T12 vertebral body. Loss of vertebral bod y height is estimated at 50%. This is favored to be subacute as there is slight thickening of the par aspinal tissues. There is no significant canal compromise. Significant multilevel degenerative changes are present throughout the lumbar spine with vacuum disc degeneration. Mild degenerative anterolisthesis L4 on 5 with moderate central canal stenosis. . Small right pleural effusion. Moderate fecal retention in the rectosigmoid colon. IMPRESSION: Compression fracture affects T12 likely subacute in timeframe. The fracture results in l oss of vertebral body height estimated at 50% without significant canal compromise.
--- NOTE | 2019-12-30 18:42 | CON ---
Reason For Consultation: Anemia. History Of Presenting Illness: This is an 84-year-old woman with history of chronic anemia for a few years, resides [facility], was sent from the [facility] because blood tests revealed a he moglobin of 6.5. Patient does report a history of dark stools for the last few weeks. No nausea, vo miting. No hematemesis. She states that she has anemia before. She has not had an upper endoscopy before and is not sure when is the last time she had a colonoscopy. Appears to be not a good histori an, but does seem to be alert and oriented. Allergies: NO KNOWN DRUG ALLERGIES. Home Medications: In the chart. Past Medical History: As above. Past Surgical History: . Social History: Denies toxic habits. Review of Systems: GI: As in HPI. General: As in HPI, otherwise negative. Remainder of 10-point review of systems is negative. Physical Examination: Vitals: On presentation, temperature 97.9, blood pressure 140/50, pulse 79, respiratory rate 14. HEENT: Head atraumatic, normocephalic. Pupils equally reactive. Pallor present. Neck: Supple. Chest: Clear to auscultation bilaterally. Abdomen: Soft, nontender, nondistended. Bowel sounds present. Extremities: No pedal edema. MACHINE PECAN GATHERER: Alert, oriented x3. CVS: S1, S2 plus. Laboratory Data: Reviewed. Hemoglobin initially 6.7, repeat 7.8. She has received a unit already. MCV is low. Iron studies do reveal some element of iron deficiency. Imaging of the abdomen did not show anything significant from a GI point of view, but did show possible compression fracture of the T12 vertebra, which she would need further workup by primary care team. Assessment: 84-year-old woman with: 1.Anemia, likely chronic anemia, but there seems to be acute drop with some evidence of dark, tarry stools. Therefore, upper GI source of bleeding is a possibility. 2.Peptic ulcer disease. 3.Severe esophagitis. Plan: I agree with PPI. I would recommend an upper endoscopy. The risks and complications of the p rocedure which include, but are not limited to bleeding, infection, perforation, and anesthesia compl ications. If negative, colonoscopy can be undertaken on an outpatient basis. However, the patient d oes not want a colonoscopy, but she is going to think about doing an upper endoscopy tomorrow, but pancho read is going to have to talk to her daughter. For now, I am putting her on the schedule for tomorrow. We are also going to ensure that there is availability of N95 mask given that this is an upper endos copy and the concern of COVID-19 spread. All necessary precautions will be taken. We will keep her n.p.o. after midnight. Further recommendations after the endoscopy. US/MODL Voice ID: [id number] Report ID: [id number]
[2019-12-30] MEDS ORDERED: FUROSEMIDE 40 MG/4 ML VIAL IV SCH (18:57)
[2019-12-30] MEDS: MELATONIN 3 MG TABLET PO SCH (21:41)
[2019-12-30] MEDS: MIRTAZAPINE 15 MG TAB PO SCH (21:41)
[2019-12-30] MEDS: ATORVASTATIN 20 MG TAB PO SCH (21:42)
[2019-12-31] MEDS: PANTOPRAZOLE INJ 80 MG in NA CHLORIDE 0.9% 250 ML IV SCH ×3 (00:33→22:39)
[2019-12-31] MEDS: DULOXETINE 30 MG CAP PO SCH ×2 (08:15→21:14)
[2019-12-31] MEDS: HYDRALAZINE HCL 20 MG/ML VIAL IV PRN ×2 (08:15→15:05)
[2019-12-31] MEDS ORDERED: Ringers Lactate 1,000 ML IV ONE (09:18)
[2019-12-31] MEDS ORDERED: LIDOCAINE 1% MPF 5 ML VIAL ONE (10:06)
[2019-12-31] MEDS ORDERED: Phenylephrine HCl 10 MG/ML 1 ML VIAL ONE (10:06)
[2019-12-31] MEDS ORDERED: propofoL 200 MG/20 ML VIAL IV ONE (10:06)
[2019-12-31] MEDS ORDERED: NS 0.9% VIAL 0 ML ONE (10:07)
[2019-12-31] MEDS ORDERED: EPINEPHRINE/PF 1 MG/ML AMP ONE (10:12)
--- NOTE | 2019-12-31 11:59 | OP ---
Surgeon: Angelo Coats MD Procedure To Be Performed: Esophagogastroduodenoscopy. Indications For Procedure: History of melena, anemia, suspected upper GI bleed. Plan For Anesthesia: Monitored anesthesia care. Complexity: Average. Technique: After obtaining informed consent from the patient explaining risks and complications whic h include but are not limited to bleeding, infection, perforation, and anesthesia complication. Gertrude ent was placed in left lateral position. Sedation was given. Subsequently, the scope was advanced t o the mouth and carefully guided up to the third portion of the duodenum. After the completion of ex amination, scope and equipment were withdrawn and procedure terminated in a safe manner. Findings: Esophagus: No gross lesion seen in the upper and mid esophagus. In the distal esophagus however, there was evidence of ulceration and whitish plaques which did not come off, which had appea red to be stuck on place. Also, there is some necrotic tissue from ulceration. Biopsies taken from this region for further evaluation and to rule out Kylee as well. Medium-sized hiatal hernia was s een in the distal esophagus, stomach, mild to moderate patchy erythema seen in the body and antrum. Body biopsies separately taken in the antrum, several superficial ulcers were seen. Biopsies taken. Duodenum: The bulb, second and proximal third portion appeared normal. Small bowel biopsies taken t o rule out celiac disease. Complications: None. Tolerance To Anesthesia: Excellent. Postoperative Diagnoses: Esophageal ulcer, hiatal hernia, gastric ulcers, gastritis. Plan: 1.Await pathology results. 2.Continue PPI. 3.Can switch to oral from tomorrow. 4.Start full liquid diet, advance as tolerated. 5.If no further episodes of bleeding, patient can be followed up in the clinic. I had recommended t hat she should have a colonoscopy which can be done as an outpatient basis, but the patient has compl etely refused that idea. However, we can talk to her when she comes and sees us in the clinic. She will need long-term PPI. US/MODL Voice ID: [id number] Report ID: [id number]
--- NOTE | 2019-12-31 12:41 | P.PN ---
Subjective Date of Service: 12/31/19 Chief Complaint: Abnormal lab Subjective: No new changes Status post EGD. Doing well. No new complaints. Physical Examination - Vital Signs Temperature: 98.6 F Blood Pressure: 162/59 Pulse: 98 Respirations: 18 Pulse Ox (%): 97 - Physical Exam General: In no apparent distress HEENT: Atraumatic, PERRLA, EOMI Neck: Supple, JVD not distended Respiratory: Clear to auscultation bilaterally, Diminished Cardiovascular: Regular rate/rhythm, Normal S1 S2 Gastrointestinal: Normal bowel sounds, No tenderness Musculoskeletal: No tenderness Integumentary: No rashes Neurological: Normal speech, Normal tone, Normal affect Lymphatics: No axilla or inguinal lymphadenopathy - Studies Laboratory Tests 12/29/19 12/30/19 12/30/19 16:40 05:36 12:05 Hgb 8.1 L Hct 26.7 L Sodium 142 Potassium 4.1 Chloride 112 H Carbon Dioxide 25 BUN 21 H Creatinine 1.13 Iron 15.0 L TIBC 491 H Transferrin 351 AST 14 L ALT 10 L Albumin 3.1 L Globulin 4.3 H Vitamin B12 1185 H Medications List Reviewed: Yes Assessment & Plan Physician Review Additional Text: Ms. Wisdom is 84 y/o female pw anemia. # Anemia due to UGI- Microcytic. PETTY. FOBT positive by ER. Tarry dark stools at [place] suggestive of UGI. -Hemodynamically stable, suspect slow bleed. -s/p 1 unit prbc transfused, monitor H&H -PPI drip; status post EGD, findings noted. -CT abdomen completed. -was on xarelto and meloxicam; now hold. Unclear why she is xarelto, retirement reported due to CAD? -continue on PPI treat until tomorrow, switch to oral per GI recommendation. -full liquid diet, advance as tolerated #H/o hypertension- continue antihypertensive. - for now IV hydralazine prn. #Diastolic heart failure- mild decompensation. - chest xray with mild pulm congestion - No significant edema - switched to p.o. diuretics. Monitor urine output. - repeat Echo pending #R shoulder pain-Chronic. On meloxicam; hold NSAIDs - Xray of R shoulder with osteoarthritis. # Hyperlipidemia, mixed- will continue statin. #Coronary artery disease, [place] artery and [place] heart without angina. # Neuropathy. #Major depressive disorder-Continue SSRI. DVT ppx- SCD Patient is full code pending her discussing with her family. Disposition-PT/OT. Possible Dc in a.m..
[2019-12-31] MEDS: CODEINE 30MG/APAP 300MG TAB PO PRN ×2 (13:16→18:37)
[2019-12-31] MEDS: FUROSEMIDE 20 MG TABLET PO SCH (18:36)
[2019-12-31] MEDS: ATORVASTATIN 20 MG TAB PO SCH (21:14)
[2019-12-31] MEDS: MELATONIN 3 MG TABLET PO SCH (21:14)
[2019-12-31] MEDS: MIRTAZAPINE 15 MG TAB PO SCH (21:15)
[2020-01-01 05:50] LABS: Absolute Lymphocytes (CBC) 0.7 K/uL (0.7-4.9); Basophils % 0.4 % (0-1.3); Hematocrit 31.2 % (36.0-45.0); Lymphocytes % 7.1 % (15.3-44.8); MPV 9.3 fL (7.6-11.3); RBC Red Blood Cell Count 4.56 M/uL (3.86-4.86)
[2020-01-01 06:04] LABS: Potassium 3.1 mmol/L (3.5-5.1)
[2020-01-01 06:14] VITALS: O2SAT 96
[2020-01-01] MEDS: FUROSEMIDE 20 MG TABLET PO SCH (08:17)
[2020-01-01] MEDS: DULOXETINE 30 MG CAP PO SCH (08:17)
[2020-01-01] MEDS: PANTOPRAZOLE INJ 80 MG in NA CHLORIDE 0.9% 250 ML IV SCH (08:18)
[2020-01-01] MEDS ORDERED: POTASSIUM 25 MEQ EFFERV TAB PO ONE (08:57)
[2020-01-01 09:32] LABS: Platelet Estimate ADEQ; Urine White Blood Cell Casts OK
[2020-01-01 09:33] LABS: Anisocytosis 1+; Blood Morphology Comment NOTED (NOT SEEN); Hypochromasia 1+; Platelets, Giant PRESENT
[2020-01-01] MEDS: HYDRALAZINE HCL 20 MG/ML VIAL IV PRN (10:45)
--- NOTE | 2020-01-01 11:24 | P.DS ---
Admission Date: 12/30/19 Discharge Date: 01/02/20 Disposition: TRANSFER TO [facility] Discharge Condition: GOOD Reason for Admission: Abnormal lab Consultations: Slope Runner Brief History of Present Illness: Admission diagnosis-Anemia due to upper GI bleeding Hypertension Diastolic heart failure Right shoulder pain CAD Neuropathy MDD Hyperlipidemia Admission diagnosis-Anemia due to upper GI bleeding due to gastric ulcer Hypertension Diastolic heart failure Right shoulder pain CAD Neuropathy MDD Hyperlipidemia Hospital Course: Ms Wisdom is 84-year-old female with history of chronic anemia who was sent to the hospital from residential due to abnormal lab. Patient's hemoglobin was 6.5, checked due to intermittent melena Patient was on Xarelto and meloxicam at the residential. Per residential, meloxicam was be given for patient's severe osteoarthritis. Xarelto was prescribed for CAD? Initial evaluation showed hemoglobin of 6.7, patient was hemodynamically stable and was transfuse 1 unit PRBC. FOBT was positive and she was evaluated by brew house supervisor. She underwent upper endoscopy which showed esophageal and gastric ulcers, pathology pending. She has been initiated on Protonix. Xarelto & meloxicam has been discontinued and she will follow up with PCP. She was also treated for mildly decompensated diastolic heart failure and currently euvolemic. She remained hemodynamically stable for discharge. Vital Signs/Physical Exam: Temp Pulse Resp BP Pulse Ox 97.6 F 105 H 16 188/81 H 98 01/01/20 08:00 01/01/20 10:48 01/01/20 08:00 01/01/20 10:48 01/01/20 08:00 General: Alert, In no apparent distress HEENT: Atraumatic, PERRLA, EOMI Neck: Supple, JVD not distended Respiratory: Clear to auscultation bilaterally, Normal air movement Cardiovascular: Regular rate/rhythm, Normal S1 S2 Gastrointestinal: Normal bowel sounds, No tenderness Musculoskeletal: No tenderness Integumentary: No rashes Neurological: Normal speech, Normal tone, Dementia Lymphatics: No axilla or inguinal lymphadenopathy Laboratory Data at Discharge: WBC 9.9 K/uL (4.3-10.9) D 01/01/20 05:24 Hgb 9.6 g/dL (12.0-15.0) L 01/01/20 05:24 Hct 31.2 % (36.0-45.0) L D 01/01/20 05:24 Plt Count 237 K/uL (152-406) 01/01/20 05:24 PT 18.1 SECONDS (9.5-12.5) H 12/29/19 16:40 INR 1.55 12/29/19 16:40 APTT 36.8 SECONDS (24.3-36.9) 12/29/19 16:40 Sodium 142 mmol/L (136-145) 01/01/20 05:24 Potassium 3.1 mmol/L (3.5-5.1) L 01/01/20 05:24 BUN 13 mg/dL (7-18) 01/01/20 05:24 Creatinine 0.94 mg/dL (0.55-1.3) 01/01/20 05:24 Glucose 94 mg/dL (74-106) 01/01/20 05:24 Magnesium 2.0 mg/dL (1.8-2.4) 01/01/20 05:24 Total Bilirubin 0.8 mg/dL (0.2-1.0) 12/30/19 05:36 AST 14 U/L (15-37) L 12/30/19 05:36 ALT 10 U/L (12-78) L 12/30/19 05:36 Alkaline Phosphatase 50 U/L (45-117) 12/30/19 05:36 Triglycerides 83 mg/dL (<150) 12/30/19 05:36 Cholesterol 119 mg/dL (<200) 12/30/19 05:36 HDL Cholesterol 45 mg/dL (40-60) 12/30/19 05:36 Cholesterol/HDL Ratio 2.64 12/30/19 05:36 Lipase 129 U/L (73-393) 12/29/19 16:40 Home Medications: Acetaminophen with Codeine [Tylenol with Codeine #4 Tablet] 1 each PO TID Amlodipine Besylate 10 mg PO BEDTIME 11/26/18 Aspirin Chewable [Aspirin Chewable*] 81 mg PO DAILY 11/26/18 Docusate [Colace Cap*] 100 mg PO BID 11/26/18 Duloxetine HCl [Cymbalta] 60 mg PO BID 11/26/18 Gabapentin 400 mg PO TID 11/26/18 Melatonin [Melatonin*] 6 mg PO BEDTIME 11/26/18 Mirtazapine 7.5 mg PO BEDTIME 11/26/18 Temazepam [Restoril*] 7.5 mg PO BEDTIME 11/26/18 Furosemide [Lasix] 20 mg PO DAILY #30 tablet 11/27/18 Potassium Chloride 10 meq PO DAILY #30 tablet.er 11/27/18 Cyanocobalamin (Vitamin B-12) [Vitamin B12] 2,500 mcg PO DAILY 12/29/19 Guaifenesin/Dextromethorphan [Guaifenesin Dm Syrup] 10 ml PO Q6HP PRN 12/29/19 Losartan Potassium [Cozaar*] 100 mg PO DAILY 12/29/19 Mag Hydrox/Aluminum Hyd/Simeth [[place] Liquid] 30 ml PO Q4H PRN 12/29/19 Nitroglycerin 0.4 mg SL SEECOM 12/29/19 Ondansetron HCl [Zofran] 1 tab PO Q8HP PRN 12/29/19 Propylene Glycol/Peg 400 [Lubricating Eye Drop] 2 drops EACH EYE BID 12/29/19 bisacodyL [Dulcolax*] 10 mg PO BEDTIME 12/29/19 Atorvastatin Calcium [Lipitor*] 20 mg PO BEDTIME tab 01/01/20 Ferrous Sulfate 325 mg PO BID #60 tablet 01/01/20 Pantoprazole Sodium [Protonix] 40 mg PO BID #60 tablet. 01/01/20 New Medications: Ferrous Sulfate 325 mg PO BID #60 tablet Pantoprazole Sodium [Protonix] 40 mg PO BID #60 tablet. Patient Discharge Instructions: AVOID NSAIDS. JUDITHRELTOMY GERBER due to GI BLEED AND ULCER. Follow up with initial prescriber. Diet: AHA Activity: Ad monie Followup: Angelo Coats MD [ACTIVE - CAN ADMIT] - Unknown,U [Primary Care Provider] -
[2020-01-01 14:42] VITALS: BP 186/76; TEMP 98
== END 2020-01-01 12:41 | DRG 377 ==
LOC: ER 16:10 → ERHOLD 17:53 → 2ND 19:38 → OBSVTOIN 12-30 08:33
PROVIDERS: ADMIT Hospitalist; ATTEND Hospitalist
PROC: 0DB78ZX Excision of Stomach, Pylorus, Via Natural or Artificial Opening Endoscopic, Diagnostic (ICD-10-PCS; 2019-12-31)
PROC: 30233N1 Transfusion of Nonautologous Red Blood Cells into Peripheral Vein, Percutaneous Approach (ICD-10-PCS; 2019-12-31)
PROC: 0DB58ZX Excision of Esophagus, Via Natural or Artificial Opening Endoscopic, Diagnostic (ICD-10-PCS; principal; 2019-12-31 10:00)
DX: K25.4 Chronic or unspecified gastric ulcer with hemorrhage (principal); I50.33 Acute on chronic diastolic (congestive) heart failure; I11.0 Hypertensive heart disease with heart failure; I25.10 Atherosclerotic heart disease of native coronary artery without angina pectoris; Z79.899 Other long term (current) drug therapy; Z79.82 Long term (current) use of aspirin; Z79.01 Long term (current) use of anticoagulants; M25.511 Pain in right shoulder; E78.2 Mixed hyperlipidemia; G62.9 Polyneuropathy, unspecified; K22.11 Ulcer of esophagus with bleeding; F32.9 Major depressive disorder, single episode, unspecified; K44.9 Diaphragmatic hernia without obstruction or gangrene; M19.90 Unspecified osteoarthritis, unspecified site; D50.0 Iron deficiency anemia secondary to blood loss (chronic)
CPT/HCPCS: 36415; 36430; 71045; 72131; 74176; 80048; 80053; 80061; 80076; 82306; 82607; 82728; 82746; 83540; 83690; 83735; 84443; 84466; 85014; 85018; 85025; 85044; 85610; 85730; 86850; 86900; 86901; 88305; 88312; 93005; 96365; 96366; 97112; 97116; 97161; 97530; 99285; C9113; G0378; J0171; J0360; J1940; J2370; J2704; J7030; J7120; P9016

== ENCOUNTER 2020-04-30 15:29 | Emergency (ER) | payer OTHER ==
[2020-04-30 16:21] LABS: Absolute Lymphocytes (CBC) 0.5 K/uL (0.7-4.9); Basophils % 0.2 % (0-1.3); Lymphocytes % 7.9 % (15.3-44.8); MPV 8.8 fL (7.6-11.3); RBC Red Blood Cell Count 4.48 M/uL (3.86-4.86)
[2020-04-30] MEDS ORDERED: NA CHLORIDE 0.9% 250 ML ONE (16:27)
[2020-04-30] MEDS ORDERED: AZITHROMYCIN 500 MG INJ IVPB ONE (16:27)
[2020-04-30 16:40] LABS: Ferritin 371.8 ng/mL (8-388); Potassium 4.2 mmol/L (3.5-5.1)
--- NOTE | 2020-04-30 16:57 | EDPHYS ---
Physician Documentation [facility] Name: Surekha Wisdom Age: 84 yrs Sex: Female : 1935 Arrival Date: 04/30/2020 Time: 15:39 Bed 16 Private MD: ED Physician Kel Strong HPI: 04/30 17:01 This 84 yrs old Female presents to ER via EMS with complaints of Altered snw Mental Status. 17:01 This 84 yrs old Female presents to ER via EMS with complaints of Altered snw Mental Status. 17:01 The patient presents with decreased mental status. Onset: The symptoms/episode snw began/occurred gradually, and became persistent. Possible causes: pt positive for CoVid 19. Associated signs and symptoms: Pertinent positives: weakness. Patient's baseline: Neuro: alert but confused, Motor: generalized weakness. The patient has experienced similar episodes in the past. It is unknown whether or not the patient has recently seen a physician. known CoVid positive, being taken care of in CoVid unit of [place]. Historical: - Allergies: 15:44 No Known Allergies; hb - Home Meds: 15:44 amlodipine 5 mg tab 1 tab once daily [Active]; aspirin 81 mg Oral chew 1 tab once daily hb [Active]; bisacodyl 5 mg Oral TbEC 1 tab [Active]; Coreg 12.5 mg Oral tab 1 tab 2 times per day [Active]; Cozaar 100 mg Oral tab 1 tab once daily [Active]; Cymbalta 60 mg Oral cpDR 1 cap once daily [Active]; fenofibrate 54 mg Oral tab 1 tab once daily [Active]; gabapentin 400 mg Oral cap 1 cap 3 times per day [Active]; Kyea-Lanta 200-200-20 mg/5 mL Oral susp 30 mL every 4 hours [Active]; Imdur 30 mg Oral Tb24 1 tab once daily [Active]; Lasix 20 mg Oral tab [Active]; Lipitor 20 mg Oral tab 1 tab once daily [Active]; loratadine 10 mg Oral tab 1 tab once daily [Active]; melatonin 3 mg Oral tab daily [Active]; meloxicam 7.5 mg Oral tab 1 tab once daily [Active]; Milk of Magnesia 400 mg/5 mL Oral susp 30 mL once daily [Active]; Miralax 17 gram/dose Oral powd once daily [Active]; mirtazapine 7.5 mg Oral tab 1 tabs once daily [Active]; potassium chloride 10 mEq Oral cpER 1 cap once daily [Active]; Restoril 15 mg Oral cap 1 cap once daily [Active]; Tylenol-Codeine #4 300-60 mg Oral tab 1 tab every 6 hours [Active]; Xarelto 15 mg Oral tab [Active]; 15:44 amlodipine 5 mg tab 1 tab once daily [Active]; aspirin 81 mg Oral chew 1 tab once daily ks7 [Active]; bisacodyl 5 mg Oral TbEC 1 tab [Active]; Coreg 12.5 mg Oral tab 1 tab 2 times per day [Active]; Cozaar 100 mg Oral tab 1 tab once daily [Active]; Cymbalta 60 mg Oral cpDR 1 cap once daily [Active]; fenofibrate 54 mg Oral tab 1 tab once daily [Active]; gabapentin 400 mg Oral cap 1 cap 3 times per day [Active]; Keya-Lanta 200-200-20 mg/5 mL Oral susp 30 mL every 4 hours [Active]; Xarelto 15 mg Oral tab [Active]; Imdur 30 mg Oral Tb24 1 tab once daily [Active]; Lasix 20 mg Oral tab [Active]; Lipitor 20 mg Oral tab 1 tab once daily [Active]; loratadine 10 mg Oral tab 1 tab once daily [Active]; melatonin 3 mg Oral tab daily [Active]; meloxicam 7.5 mg Oral tab 1 tab once daily [Active]; Milk of Magnesia 400 mg/5 mL Oral susp 30 mL once daily [Active]; Miralax 17 gram/dose Oral powd once daily [Active]; mirtazapine 7.5 mg Oral tab 1 tabs once daily [Active]; potassium chloride 10 mEq Oral cpER 1 cap once daily [Active]; Restoril 15 mg Oral cap 1 cap once daily [Active]; Tylenol-Codeine #4 300-60 mg Oral tab 1 tab every 6 hours [Active]; - PMHx: 15:44 Bipolar disorder; Anxiety; CAD; CHF; Depression; severe with psychotic symptoms; hb Hyperlipidemia; Hypertension; neuropathy; 15:44 Anxiety; Bipolar disorder; CAD; CHF; Depression; severe with psychotic symptoms; ks7 Hyperlipidemia; Hypertension; neuropathy; - PSHx: 15:44 Unable to obtain; hb - Immunization history:: Adult Immunizations up to date, Adult Immunizations up to date. - Social history:: Smoking status: unknown Smoking status: Patient denies any tobacco usage or history of. ROS: 17:01 Eyes: Negative for injury, pain, redness, and discharge, ENT: Negative for injury, snw pain, and discharge, Neck: Negative for injury, pain, and swelling, Cardiovascular: Negative for chest pain, palpitations, and edema, Respiratory: Negative for shortness of breath, cough, wheezing, and pleuritic chest pain, Abdomen/GI: Negative for abdominal pain, nausea, vomiting, diarrhea, and constipation, Back: Negative for injury and pain, : Negative for injury, bleeding, discharge, and swelling, MS/Extremity: Negative for injury and deformity, Skin: Negative for injury, rash, and discoloration, Neuro: Negative for headache, weakness, numbness, tingling, and seizure, Psych: Negative for depression, anxiety, suicide ideation, homicidal ideation, and hallucinations. 17:01 Constitutional: Positive for reported altered mental status. Exam: 16:59 Head/Face: Normocephalic, atraumatic. Eyes: Pupils equal round and reactive to light, snw extra-ocular motions intact. Lids and lashes normal. Conjunctiva and sclera are non-icteric and not injected. Cornea within normal limits. Periorbital areas with no swelling, redness, or edema. ENT: Nares patent. No nasal discharge, no septal abnormalities noted. Tympanic membranes are normal and external auditory canals are clear. Oropharynx with no redness, swelling, or masses, exudates, or evidence of obstruction, uvula midline. Mucous membranes moist. Neck: Trachea midline, no thyromegaly or masses palpated, and no cervical lymphadenopathy. Supple, full range of motion without nuchal rigidity, or vertebral point tenderness. No Meningismus. Chest/axilla: Normal chest wall appearance and motion. Nontender with no deformity. No lesions are appreciated. Cardiovascular: Irregularly irregular rate and rhythm with a normal S1 and S2. No gallops, murmurs, or rubs. Normal PMI, no JVD. No pulse deficits. Abdomen/GI: Soft, non-tender, with normal bowel sounds. No distension or tympany. No guarding or rebound. No evidence of tenderness throughout. Back: No spinal tenderness. No costovertebral tenderness. Full range of motion. Skin: Warm, dry with normal turgor. Normal color with no rashes, no lesions, and no evidence of cellulitis. MS/ Extremity: Pulses equal, no cyanosis. Neurovascular intact. Full, normal range of motion. 16:59 Constitutional: The patient appears alert, awake. 16:59 Respiratory: the patient does not display signs of respiratory distress, Respirations: shallow respirations, Breath sounds: are clear throughout, coarse cough. 16:59 Neuro: Orientation: pt does not answer questions but responds to name. Looks at me when I call her name, Follows with eyes around the room. Vital Signs: 15:39 BP 153 / 67; Pulse 86; Resp 16; Temp 97.7(TE); Pulse Ox 96% on R/A; Weight 85 kg; Pain hb 0/10; 15:40 BP 153 / 67; Pulse 72; Resp 18; Temp 97.7(TE); Pulse Ox 97% on R/A; Pain 0/10; ks7 16:08 BP 159 / 60; Pulse 79; Resp 15; Temp 97.7(TE); Pulse Ox 97% on R/A; Pain 0/10; ks7 17:09 BP 102 / 71; Pulse 87; Resp 18; Temp 97.9(TE); Pulse Ox 95% on R/A; Pain 0/10; ks7 17:47 BP 109 / 97; Pulse 82; Resp 20; Temp 97.9(TE); Pulse Ox 94% on R/A; Pain 0/10; ks7 18:11 Pulse Ox 95% ; Pain 0/10; ks7 19:31 BP 166 / 65; Pulse 80; Resp 18; Temp 98(TE); Pulse Ox 96% on R/A; Pain 0/10; ks7 15:39 Ely-Bourgeois (FACES) hb MDM: 15:52 Patient medically screened. snw 17:07 Data reviewed: vital signs, nurses notes. Data interpreted: Pulse oximetry: on room air snw is 97 %. Interpretation: normal. Counseling: I had a detailed discussion with the patient and/or guardian regarding: the historical points, exam findings, and any diagnostic results supporting the discharge/admit diagnosis, lab results, radiology results, the need for outpatient follow up, for definitive care, to return to the emergency department if symptoms worsen or persist or if there are any questions or concerns that arise at home. Special discussion: Based on the history and exam findings, there is no indication for further emergent testing or inpatient evaluation. I discussed with the patient/guardian the need to see the primary care provider for further evaluation of the symptoms. 04/30 15:56 Order name: CBC with Diff; Complete Time: 16:48 snw 04/30 15:56 Order name: Chem 7; Complete Time: 16:48 snw 04/30 15:56 Order name: Chest Single View XRAY; Complete Time: 17:57 snw 04/30 15:56 Order name: Ferritin; Complete Time: 16:48 snw 04/30 16:02 Order name: Glucose, Ancillary Testing; Complete Time: 16:48 EDMS 04/30 15:56 Order name: FSBS; Complete Time: 16:14 snw Administered Medications: Discontinued: Zithromax 500 mg IVPB once over 1 hrs; mix in 250 mL NS 16:40 Drug: Zithromax 500 mg Route: IVPB; Infused Over: 1 hrs; Site: right wrist; ks7 17:48 Drug: Zinc Sulfate 220 mg Route: PO; ks7 18:11 Follow up: Pulse Ox 95% ; Pain 0/10 Adult ks7 Point of Care Testing: Blood Glucose: 16:08 Blood Glucose: 98 mg/dL; ks7 Ranges: Critical Glucose Levels:Adult <50 mg/dl or >400 mg/dl <40 mg/dl or >180 mg/dl Disposition: 22:07 Co-signature as Attending Physician, Kel Strong MD I agree with the assessment and eligio plan of care. Disposition: 04/30/20 16:56 Discharged to Home. Impression: SARS-associated coronavirus as the cause of diseases classified elsewhere. - Condition is Stable. - Discharge Instructions: COVID-19. - Prescriptions for zinc sulfate- vitamin C - take 1 tablet by ORAL route once daily; 30 tablet. Zithromax 500 mg Oral Tablet - take 1 tablet by ORAL route once daily for 5 days; 5 tablet. - Medication Reconciliation Form, Thank You Letter, Antibiotic Education, Prescription Opioid Use, SBAR form form. - Follow up: Emergency Department; When: As needed; Reason: Worsening of condition. Follow up: Private Physician; When: 1 - 2 days; Reason: Recheck today's complaints, Continuance of care, Re-evaluation by your physician. - Problem is new. - Symptoms are unchanged. Signatures: Dispatcher [employer] EDMS Kel Strong MD MD cha Waters, Shelly, FAMILY WORKER-C FAMILY WORKER-Csnw Alicia Turner, RN RN Arlene Vega RN RN ks7 Corrections: (The following items were deleted from the chart) 19:43 16:56 04/30/2020 16:56 Discharged to Home. Impression: SARS-associated coronavirus as ks7 the cause of diseases classified elsewhere. Condition is Stable. Forms are Medication Reconciliation Form, Thank You Letter, Antibiotic Education, Prescription Opioid Use. Follow up: Emergency Department; When: As needed; Reason: Worsening of condition. Follow up: Private Physician; When: 1 - 2 days; Reason: Recheck today's complaints, Continuance of care, Re-evaluation by your physician. Problem is new. Symptoms are unchanged. snw
--- NOTE | 2020-04-30 16:57 | ER ---
Nurse's Notes [facility] Name: Surekha Wisdom Age: 84 yrs Sex: Female : 1935 Arrival Date: 04/30/2020 Time: 15:39 Bed 16 Private MD: Diagnosis: SARS-associated coronavirus as the cause of diseases classified elsewhere Presentation: 04/30 15:39 Chief complaint: EMS states: Called for unresponsive, on scene pt was alert, confused, hb AOx1. VS WNL. Hx of dementia. COVID POSITIVE. Coronavirus screen: Patient instructed to continue to wear a mask when interacting with others. Patient moved to private room, placed in contact and droplet isolation with eye protection until further assessment. Ebola Screen: No symptoms or risks identified at this time. Initial Sepsis Screen: Does the patient meet any 2 criteria? No. Patient's initial sepsis screen is negative. Does the patient have a suspected source of infection? No. Patient's initial sepsis screen is negative. Risk Assessment: Do you want to hurt yourself or someone else? Patient reports no desire to harm self or others. Onset of symptoms was April 30, 2020. 15:39 Method Of Arrival: EMS: [facility] hb 15:39 Acuity: JEANMARIE 2 hb 15:40 Chief complaint: EMS states: Altered LOC. EMS was called for "unresponsive pt" on ks7 arrival, pt awake but altered. pt has hx of dementia. Coronavirus screen: Patient reports a cough. Patient reports shortness of breath or difficulty breathing. Patient denies measured and/or subjective temperature greater than 100.4F prior to today's visit. Patient denies travel on a cruise ship or to a country the [facility] currently lists as an affected area. Patient reports contact with known and/or suspected case of COVID-19. Patient instructed to continue to wear a mask when interacting with others. Patient moved to private room, placed in contact and droplet isolation with eye protection until further assessment. Prior COVID test. Ebola Screen: Patient negative for fever greater than or equal to 101.5 degrees Fahrenheit, and additional compatible Ebola Virus Disease symptoms Patient denies exposure to infectious person. Patient denies travel to an Ebola-affected area in the 21 days before illness onset. Initial Sepsis Screen: Does the patient meet any 2 criteria? No. Patient's initial sepsis screen is negative. Does the patient have a suspected source of infection? No. Patient's initial sepsis screen is negative. Risk Assessment: Do you want to hurt yourself or someone else? Patient reports no desire to harm self or others. Onset of symptoms is unknown. 15:40 Method Of Arrival: EMS: [facility] ks7 15:40 Acuity: JEANMARIE 3 ks7 Triage Assessment: 15:44 General: Appears ill, Behavior is listless. ks7 Historical: - Allergies: 15:44 No Known Allergies; hb - Home Meds: 15:44 amlodipine 5 mg tab 1 tab once daily [Active]; aspirin 81 mg Oral chew 1 tab once daily [Active]; bisacodyl 5 mg Oral TbEC 1 tab [Active]; Coreg 12.5 mg Oral tab 1 tab 2 times per day [Active]; Cozaar 100 mg Oral tab 1 tab once daily [Active]; Cymbalta 60 mg Oral cpDR 1 cap once daily [Active]; fenofibrate 54 mg Oral tab 1 tab once daily [Active]; gabapentin 400 mg Oral cap 1 cap 3 times per day [Active]; Keya-Lanta 200-200-20 mg/5 mL Oral susp 30 mL every 4 hours [Active]; Imdur 30 mg Oral Tb24 1 tab once daily [Active]; Lasix 20 mg Oral tab [Active]; Lipitor 20 mg Oral tab 1 tab once daily [Active]; loratadine 10 mg Oral tab 1 tab once daily [Active]; melatonin 3 mg Oral tab daily [Active]; meloxicam 7.5 mg Oral tab 1 tab once daily [Active]; Milk of Magnesia 400 mg/5 mL Oral susp 30 mL once daily [Active]; Miralax 17 gram/dose Oral powd once daily [Active]; mirtazapine 7.5 mg Oral tab 1 tabs once daily [Active]; potassium chloride 10 mEq Oral cpER 1 cap once daily [Active]; Restoril 15 mg Oral cap 1 cap once daily [Active]; Tylenol-Codeine #4 300-60 mg Oral tab 1 tab every 6 hours [Active]; Xarelto 15 mg Oral tab [Active]; 15:44 amlodipine 5 mg tab 1 tab once daily [Active]; aspirin 81 mg Oral chew 1 tab once daily ks7 [Active]; bisacodyl 5 mg Oral TbEC 1 tab [Active]; Coreg 12.5 mg Oral tab 1 tab 2 times per day [Active]; Cozaar 100 mg Oral tab 1 tab once daily [Active]; Cymbalta 60 mg Oral cpDR 1 cap once daily [Active]; fenofibrate 54 mg Oral tab 1 tab once daily [Active]; gabapentin 400 mg Oral cap 1 cap 3 times per day [Active]; Keya-Lanta 200-200-20 mg/5 mL Oral susp 30 mL every 4 hours [Active]; Xarelto 15 mg Oral tab [Active]; Imdur 30 mg Oral Tb24 1 tab once daily [Active]; Lasix 20 mg Oral tab [Active]; Lipitor 20 mg Oral tab 1 tab once daily [Active]; loratadine 10 mg Oral tab 1 tab once daily [Active]; melatonin 3 mg Oral tab daily [Active]; meloxicam 7.5 mg Oral tab 1 tab once daily [Active]; Milk of Magnesia 400 mg/5 mL Oral susp 30 mL once daily [Active]; Miralax 17 gram/dose Oral powd once daily [Active]; mirtazapine 7.5 mg Oral tab 1 tabs once daily [Active]; potassium chloride 10 mEq Oral cpER 1 cap once daily [Active]; Restoril 15 mg Oral cap 1 cap once daily [Active]; Tylenol-Codeine #4 300-60 mg Oral tab 1 tab every 6 hours [Active]; - PMHx: 15:44 Bipolar disorder; Anxiety; CAD; CHF; Depression; severe with psychotic symptoms; hb Hyperlipidemia; Hypertension; neuropathy; 15:44 Anxiety; Bipolar disorder; CAD; CHF; Depression; severe with psychotic symptoms; ks7 Hyperlipidemia; Hypertension; neuropathy; - PSHx: 15:44 Unable to obtain; hb - Immunization history:: Adult Immunizations up to date, Adult Immunizations up to date. - Social history:: Smoking status: unknown Smoking status: Patient denies any tobacco usage or history of. Screenin:09 Abuse screen: Denies threats or abuse. Nutritional screening: No deficits noted. ks7 Tuberculosis screening: No symptoms or risk factors identified. Fall Risk No fall in past 12 months (0 pts). Secondary diagnosis (15 points) IV access (20 points). Ambulatory Aid- None/Bed Rest/Nurse Assist (0 pts). Gait- Impaired (20 pts.). Mental Status- Overestimates/Forgets Limitations (15 pts.). Total Lopez Fall Scale indicates High Risk Score (45 or more points). Side Rails Up X 2 Placed Close to Nursing Station Frequent Obs/Assessments Occuring. Assessment: 16:09 Pain: Unable to use pain scale. Patient is disoriented. Patient appears quiet. Neuro: ks7 Level of Consciousness is awake, confused, Oriented to person, Speech pt does not answer questions when asked. when IV started, pt yelled "ouch". Facial symmetry appears normal. 16:51 Reassessment: faxed request to pharmacy to send PO zinc to ED. ks7 17:09 Reassessment: resting quietly. waiting for zithromax to finish before dc home. ks7 17:48 Reassessment: pt answering yes not questions, able to swallow pills and water. will ks7 call report for pt to go back to facility. 18:50 Reassessment: [facility] contacted for transport back to [facility]. aa5 Spoke to pt's nurse at [facility] and nurse states their ambulance transportation is not transporting positive COVID-19 pts at this time. . 19:31 Reassessment: Pt resting comfortably in room, waiting for transport back to SNF. ks7 Vital Signs: 15:39 BP 153 / 67; Pulse 86; Resp 16; Temp 97.7(TE); Pulse Ox 96% on R/A; Weight 85 kg; Pain hb 0/10; 15:40 BP 153 / 67; Pulse 72; Resp 18; Temp 97.7(TE); Pulse Ox 97% on R/A; Pain 0/10; ks7 16:08 BP 159 / 60; Pulse 79; Resp 15; Temp 97.7(TE); Pulse Ox 97% on R/A; Pain 0/10; ks7 17:09 BP 102 / 71; Pulse 87; Resp 18; Temp 97.9(TE); Pulse Ox 95% on R/A; Pain 0/10; ks7 17:47 BP 109 / 97; Pulse 82; Resp 20; Temp 97.9(TE); Pulse Ox 94% on R/A; Pain 0/10; ks7 18:11 Pulse Ox 95% ; Pain 0/10; ks7 19:31 BP 166 / 65; Pulse 80; Resp 18; Temp 98(TE); Pulse Ox 96% on R/A; Pain 0/10; ks7 15:39 Ely-Bourgeois (FACES) hb Vitals: 16:09 Cardiac Rhythm Assessment Atrial fibrillation. ks7 ED Course: 15:39 Patient arrived in ED. hb 15:40 Arlene Vega, RN is Primary Nurse. ks7 15:42 Triage completed. hb 15:44 Arm band placed on. hb 15:52 Ana Santiago FNP-C is PHCP. snw 15:52 Kel Strong MD is Attending Physician. snw 16:09 Resting quietly. ks7 16:09 Patient has correct armband on for positive identification. Placed in gown. Bed in low ks7 position. Call light in reach. Side rails up X2. 16:09 No provider procedures requiring assistance completed. Inserted saline lock: 20 gauge ks7 in right wrist, using aseptic technique. Blood collected. 16:14 Ferritin Sent. ks7 16:14 Chem 7 Sent. ks7 16:14 CBC with Diff Sent. ks7 16:34 Chest Single View XRAY In Process Unspecified. EDMS 16:35 Ferritin Sent. ks7 16:35 Chem 7 Sent. ks7 18:18 transfer transportation to receiving facility. Awaiting transportation, Awaiting: ks7 Report called to Dany at [facility]. She is arranging transport back to facility. 18:18 IV discontinued, intact, bleeding controlled, No redness/swelling at site. Pressure ks7 dressing applied. 19:41 Report given to EMS BLS transport bck to facility. ks7 19:42 IV discontinued, intact, bleeding controlled, No redness/swelling at site. Pressure ks7 dressing applied. Administered Medications: Discontinued: Zithromax 500 mg IVPB once over 1 hrs; mix in 250 mL NS 16:40 Drug: Zithromax 500 mg Route: IVPB; Infused Over: 1 hrs; Site: right wrist; ks7 17:48 Drug: Zinc Sulfate 220 mg Route: PO; ks7 18:11 Follow up: Pulse Ox 95% ; Pain 0/10 Adult ks7 Point of Care Testing: Blood Glucose: 16:08 Blood Glucose: 98 mg/dL; ks7 Ranges: Outcome: 16:56 Discharge ordered by . snw 19:41 Discharged to home via ambulance. ks7 19:41 Condition: stable 19:41 Discharge instructions given to EMS, Prescriptions given X 2. 19:43 Patient left the ED. ks7 Signatures: Dispatcher [employer] EDMS Ana Santiago, EARNESTINE WIRED MUSIC OPERATOR-Kristina Aguirre, RN RN aa5 Alicia Turner, RN RN Arlene Vega, RN RN ks7
[2020-04-30] MEDS ORDERED: ZINC SULFATE 220 MG CAP ONE (17:37)
--- NOTE | 2020-04-30 17:46 | RAD REPORT ---
EXAM DESCRIPTION: RAD - Chest Single View - 04/30/2020 4:33 pm CLINICAL HISTORY: CONGESTION COMPARISON: Portable December 28 TECHNIQUE: AP portable chest image was obtained 04/30/2020 4:33 pm . FINDINGS: No focal consolidation or mass. Retrocardiac left base assessment is limited. Patient has baseline interstitial pattern that is similar to slightly less prominent than comparison. Heart size is upper normal to slightly enlarged. Vasculature within normal limits. No measurable pleural effusio n and no pneumothorax. No acute bony abnormality seen. No acute aortic findings suspected. IMPRESSION: Cardiomegaly and vascular prominence less pronounced than seen December 28. No focal mass or consolidation.
[2020-04-30 20:03] VITALS: BP 166/65; TEMP 98; O2SAT 96
== END 2020-04-30 19:43 | disposition home or self-care (01) ==
LOC: ER 15:29
DX: U07.1 COVID-19 (principal); I10 Essential (primary) hypertension; F31.9 Bipolar disorder, unspecified; Z79.01 Long term (current) use of anticoagulants; Z79.82 Long term (current) use of aspirin
CPT/HCPCS: 85025; 80048; 36415; 82947; 82728; 71045; 96374; 99284; J0456; J7050